=== PATIENT | male | born 1960 | race Caucasian/White ===

== ENCOUNTER → 2018-05-11 02:07 | Outpatient (CLI) | payer BC, SELFPAY ==
[2018-05-11 11:30] LABS: Hemoglobin A1C 6.7 % (4.5-6.2)
== END ==
PROVIDERS: PCP Family Medicine; Visit Provider Family Medicine
DX: E11.9 Type 2 diabetes mellitus without complications (principal)
CPT/HCPCS: 36415; 83036

== ENCOUNTER → 2018-05-12 00:54 | Outpatient (CLI) | payer BC, SELFPAY ==
--- NOTE | 2018-05-12 10:48 | DI.REPORT_ITS ---
SYMPTOM/DIAGNOSIS: WORSENING EPIGASTRIC PAIN ABDOMINAL ULTRASOUND: 05/12 Liver shows decreased through transmission and dependent portions of the liver are nonvisualized. There is increased hepatic echogenicity. The findings are consistent with hepatic steatosis. There is no evidence of cholelithiasis or biliary dilatation. Pancreas appears intact as visualized. Abdominal aorta is of normal diameter as is the IVC. Kidneys are unremarkable in appearance with no evidence of hydronephrosis or nephrolithiasis. Spleen appears normal. CONCLUSION: Findings consistent with hepatic steatosis.
== END ==
PROVIDERS: PCP Family Medicine; Visit Provider Family Medicine
DX: R10.13 Epigastric pain (principal); K76.0 Fatty (change of) liver, not elsewhere classified
CPT/HCPCS: 76700

== ENCOUNTER 2019-02-22 02:05 | Outpatient (CLI) | payer BC, SELFPAY ==
[2019-02-22 10:57] LABS: CREATININE 1.03 mg/dL (0.70-1.30); Cholesterol 186 mg/dL (50-200); HDL Cholesterol 41 mg/dL (40-60); LDL CHOLESTEROL 122 mg/dL (<100); Potassium 4.3 mmol/L (3.5-5.1); Triglyceride 90 mg/dL (30-150)
[2019-02-22 11:10] LABS: Hemoglobin A1C 6.6 % (4.5-6.2)
== END 2019-02-22 02:25 ==
PROVIDERS: PCP Family Medicine; Visit Provider Family Medicine
DX: E11.9 Type 2 diabetes mellitus without complications (principal); E78.5 Hyperlipidemia, unspecified
CPT/HCPCS: 36415; 80061; 83721; 82565; 83036; 84132

== ENCOUNTER 2019-09-05 08:56 | Outpatient (CLI) | payer BC, SELFPAY ==
[2019-09-05 11:22] LABS: Hemoglobin A1C 6.5 % (4.5-6.2)
== END 2019-09-05 09:16 ==
PROVIDERS: PCP Family Medicine; Visit Provider Family Medicine
DX: E11.9 Type 2 diabetes mellitus without complications (principal)
CPT/HCPCS: 36415; 83036

== ENCOUNTER 2019-09-23 10:11 | Emergency (ER) | payer BC, SELFPAY ==
[2019-09-23 10:18] VITALS: BP 147/77; PULSE 60; RESP 15; TEMP 36.1; O2SAT 98
[2019-09-23 10:22] LABS: Bilirubin Negative (Negative); Blood Negative (Negative); Clarity Clear (Clear); Glucose Negative (Negative); Ketones Negative (Negative); Leukocyte Esterase Negative (Negative); Nitrite Negative (Negative); Urobilinogen 0.2 EU/dL (Up TO 0.2)
--- NOTE | 2019-09-23 10:47 | W.ED.GENAD ---
Discharge Plan Disposition Patient Disposition: HOME Discharge Details Chief Complaint: FlankPain Clinical Impression: Acute left flank pain, Left ureter dilated Primary Care Provider: Sukhwinder Dumont ED Provider: Arnulfo Chatterjee Home Meds and New Rx's Prescriptions: New ibuprofen 600 mg tablet 600 mg PO Q8H PRN (Reason: pain) Qty: 60 RF: 0 diazepam [Valium] 2 mg tablet 2 mg PO BID PRN (Reason: spasms) Qty: 8 RF: 0 Continued metformin 500 mg tablet 500 mg PO BID RF: 0 losartan 100 mg tablet 100 mg PO DAILY Qty: 90 RF: 3 omeprazole 40 mg capsule,delayed release(DR/EC) 40 mg PO DAILY PRN (Reason: gerd) Qty: 90 RF: 3 sertraline [Zoloft] 50 mg tablet 50 mg PO HS Qty: 90 RF: 3 (DME) blood-glucose meter [[employer] Verio System] 1 EACH misc 1 ea Miscellaneous DAILY Qty: 1 RF: 0 simvastatin [Zocor] 40 mg tablet 40 mg PO HS Qty: 90 RF: 4 (DME) blood sugar diagnostic Strip 1 ea Miscellaneous DAILY Qty: 90 RF: 2 Discontinued ibuprofen [Ibuprofen IB] 200 mg Tablet 400 mg PO Q6H PRNRF: 0 No Action hydromorphone [Dilaudid] 4 mg tablet 4 mg PO Q6H MDD 3 tabs PRN (Reason: back pain) Qty: 10 RF: 0 cyclobenzaprine 10 mg tablet 10 mg PO HS PRN (Reason: muscle spasm) Qty: 10 RF: 0 acetaminophen 500 mg Tablet 1,000 mg PO PRN PRNRF: 0 hydrocodone-acetaminophen [[place]] 5-325 mg tablet 1 tab PO Q6H PRN (Reason: pain) Qty: 4 RF: 0 Discharge Instructions Instructions: Kidney Stones (ED), Flank Pain (ED) Additional Instructions: Take ibuprofen as prescribed. Please take acetaminophen (tylenol) - 650mg every 6 hours by mouth as needed for pain. Use [id number] lidocaine patches if these provide relief. Please contact your primary care physician to arrange follow-up. Return to the ER for any worsening or new concerning symptoms. Stand Alone Forms: Work Release Referrals: Sukhwinder uDmont [Primary Care Provider] - Discharge Data Discharge Date/Time-TO BE ENTERED AT DEPARTURE: 09/23/19 13:50 Medical Decision Making 1049 --58-year-old male here with left flank pain that started a couple days ago and much worse since this morning with associated nausea and diaphoresis. Urinalysis was reviewed: No hematuria or leuko-uria. Consider renal stone. Plan to obtain CT of the abdomen pelvis. Toradol 30 mg IV and Valium 2 mg p.o. for discomfort. --CT of the abdomen pelvis interpreted by radiology: Findings suggesting possible recent left renal or ureteral stone passage. Minimal dilatation of the left intrarenal collecting system and ureter with no specific obstructing process. Labs reviewed and nondiagnostic. Patient reassessed and pain improved. Plan for outpatient follow-up with PCP. Disposition decision was made weighing the risks and benefits of hospitalization versus outpatient treatment, the risk for further decompensation, and the patient's wishes. The patient was stable and requested discharge. Prior to discharge, my usual and customary return precautions were reviewed with the patient - this included follow-up instructions and reason to return to the emergency department if condition worsens, does not improve as expected, or other new concerns arise. HPI General Mode of arrival: ambulatory. Date/Time Provider Initiated Documentation: 09/23/19 10:31. Limitations to Documentation: no limitations. Information obtained by: patient. HPI Narrative: 58-year-old male here with severe left flank pain. Patient notes he thinks he may have tweaked his back a couple days ago. Took it easy yesterday but did have some discomfort. He woke up this morning with severe pain. Pain is localized to his left flank. Constant. He has associated nausea as well as diaphoresis this morning. No associated dysuria. No hematuria. No testicular pain. No abdominal pain. Related Data Home Medications Medication Instructions Recorded Confirmed blood-glucose meter [OneTouch #1 11/03/16 10/04/19 Verio System] simvastatin 40 mg tablet 40 mg PO HS #90 tab-cap 10/27/18 10/04/19 omeprazole 40 mg capsule,delayed 40 mg PO DAILY PRN #90 tab-cap 02/08/19 10/04/19 release sertraline 50 mg tablet 50 mg PO HS #90 tab-cap 02/08/19 10/04/19 blood sugar diagnostic #90 strip 08/08/19 10/04/19 losartan 100 mg tablet 100 mg PO DAILY #90 tab 09/05/19 10/04/19 metformin 500 mg tablet 500 mg PO BID tab 09/05/19 10/04/19 diazepam [Valium] 2 mg PO BID PRN #8 tab 09/23/19 10/04/19 ibuprofen 600 mg PO Q8H PRN #60 tab 09/23/19 10/04/19 acetaminophen 1,000 mg PO PRN PRN 09/24/19 10/04/19 hydrocodone-acetaminophen [[place]] 1 tab PO Q6H PRN #4 tab 09/24/19 10/04/19 cyclobenzaprine 10 mg tablet 10 mg PO HS PRN #10 tab 09/26/19 10/04/19 hydromorphone 4 mg tablet 4 mg PO Q6H PRN #10 tab MDD 3 tabs 09/26/19 10/04/19 Previous Rx's Medication Instructions Recorded simvastatin 40 mg tablet 40 mg PO HS #90 tab-cap 10/27/18 omeprazole 40 mg capsule,delayed 40 mg PO DAILY PRN #90 tab-cap 02/08/19 release sertraline 50 mg tablet 50 mg PO HS #90 tab-cap 02/08/19 blood sugar diagnostic #90 strip 08/08/19 losartan 100 mg tablet 100 mg PO DAILY #90 tab 09/05/19 diazepam [Valium] 2 mg PO BID PRN #8 tab 09/23/19 ibuprofen 600 mg PO Q8H PRN #60 tab 09/23/19 hydrocodone-acetaminophen [[place]] 1 tab PO Q6H PRN #4 tab 09/24/19 cyclobenzaprine 10 mg tablet 10 mg PO HS PRN #10 tab 09/26/19 hydromorphone 4 mg tablet 4 mg PO Q6H PRN #10 tab MDD 3 tabs 09/26/19 Allergies Allergy/AdvReac Type Severity Reaction Status Date / Time No Known Allergies Allergy Verified 10/04/19 10:24 General Stated Complaint: FlankPain ZULAY: 3 Review of Systems All systems reviewed & are unremarkable except as noted in HPI and below Constitutional Constitutional: Denies fever(s) Genitourinary Genitourinary: Reports as per HPI [facility] Medical History Actinic keratosis (Acute ~06/2019) Diabetes mellitus (Chronic) Surgical History Colonoscopy - MAC (11/06/13) Repair, Rotator Cuff (01/31/16) Family History Mother , 78 ALS (amyotrophic lateral sclerosis) Essential hypertension Hyperlipidemia Father , 84 Heart disease Sister , 64 Lung cancer Brother , 63 Heart disease Stroke Brother Stroke Brother Hyperlipidemia Social History Smoking/Tobacco Use Status: Former Tobacco Use Alcohol Intake: current Alcohol Intake frequency: a few times a week Drug use: Never Caregiver/Support person: No Household members: spouse Housing: house Do you need help understanding health information?: Never Pets and animals: Yes Pets and animals: dog(s) Sexually active: Yes Do you think of yourself as: straight/heterosexual Current gender identity: male What is your relationship status?: How often do you talk on the phone with friends or family?: three or more times per week How often do you get together with friends or relatives?: once per week How often do you attend oriental orthodox or zoroastrianism services?: 1-3 times per year Do you belong to any clubs or organized social groups?: no Panel score (0-1 are the most socially isolated patients): 2 What type of physical activity do you participate in: bicycling Duration: > 90 minutes/day Frequency: 1-2 times per week Seatbelt use: always Helmet use: Yes 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 Do you feel safe at home: Yes Do you feel safe in your relationship?: Yes Exam Const General: cooperative and no acute distress HENMT Mouth: moist mucous membranes Eyes Conjunctivae: normal conjunctivae Sclera: normal sclerae Neck Neck: trachea midline and supple Resp Auscultation: clear to auscultation bilaterally, no rales, no rhonchi and no wheezes Cardio Jugular venous pressure: no JVD Rate: regular rate and not tachycardic Rhythm: regular rhythm GI Palpation: soft, not firm, no guarding, no masses, not rigid and nontender General: CVA tenderness on the left Back/Spine/Pelvis Back: No erythema, No ecchymosis and back tenderness (Left lumbar paraspinal) Skin General skin exam: no rashes or lesions noted Neuro General: alert, awake, oriented x3 and tone normal Motor: strength 5/5 throughout Sensory Exam: no sensory deficits noted (Bilateral lower extremities with no saddle anesthesia) Extrem General: no edema Psych Appearance: grossly normal Mental Status: mental status grossly normal Speech and Movement: speech and movement normal Course Vital Signs Vital signs: Vital Signs Temperature 36.1 C L 09/23/19 10:18 Pulse 60 09/23/19 10:18 Respiratory Rate 15 09/23/19 10:18 Blood Pressure 147/77 H 09/23/19 10:18 Pulse Oximetry 98 09/23/19 10:18 Temperature 36.1 C L 09/23/19 10:18 Temperature Source Temporal Artery Scan 09/23/19 10:18 Pulse 60 09/23/19 10:18 Respiratory Rate 15 09/23/19 10:18 Respiratory Effort Non-Labored 09/23/19 10:21 Blood Pressure 147/77 H 09/23/19 10:18 Blood Pressure Position Standing 09/23/19 10:18 Pulse Oximetry 98 09/23/19 10:18 Oxygen Delivery Method Room Air 09/23/19 10:18 Oxygen Flow Rate 0 09/23/19 10:18 Pain Level 9 09/23/19 10:18 Lab/Test Results Lab/Test Results: Laboratory Tests Range/Units 09/23/19 10:17 Urine Color (Yellow) Yellow Urine Clarity (Clear) Clear Urine pH (5-8) 7.0 Ur Specific [place] (1.005-1.025) 1.020 Urine Protein (Negative) mg/dL Negative Urine Ketones (Negative) mg/dL Negative Urine Blood (Negative) Negative Urine Nitrite (Negative) Negative Urine Bilirubin (Negative) Negative Urine Urobilinogen (Up TO 0.2) EU/dL 0.2 Ur Leukocyte Esterase (Negative) Negative Urine Glucose (Negative) mg/dL Negative
[2019-09-23 11:16] LABS: Abs Immature Grans 0.01 k/cumm (0.0-0.09); Absolute Basophil Count 0.01 k/cumm (0.0-0.2); Absolute Eosinophil Count 0.15 k/cumm (0.0-0.7); Absolute Lymphocyte Count 1.74 k/cumm (1.2-3.4); Absolute Monocyte Count 0.48 k/cumm (0.11-0.7); Absolute Neutrophil Count 3.19 k/cumm (1.2-6.7); Basophils % 0.2; Eosinophils % 2.7; HCT 42.3 % (40.0-50.0); HGB 13.4 g/dL (13.5-17.5); Immature Grans % 0.2; Lymphocytes % 31.2; Mean Corp. HGB Concentration 31.7 g/dL (32.0-36.0); Mean Corpuscular Hemoglobin 27.3 pg (27.0-33.0); Mean Corpuscular Volume 86.3 fL (80-95); Mean Platelet Volume 11.9 fL (8.0-11.0); Monocytes % 8.6; Neutrophils % 57.1; Platelet Count 191 x1000/uL (130-400); RBC Distribution Width 12.5 % (11.8-14.1); White Blood Cell Count 5.58 k/cumm (4.4-10.8)
[2019-09-23] MEDS: Ketorolac 30 MG/ML VIAL IVP (11:17)
[2019-09-23] MEDS: diazePAM 2 MG TAB PO (11:17)
[2019-09-23] MEDS: Normal Saline 1,000 ML 1000 ML IV (11:20)
[2019-09-23] MEDS: Normal Saline Flush 10 ML SYR IVP (11:20)
[2019-09-23 11:34] LABS: ALT 83 U/L (16-63); AST 36 U/L (15-37); Albumin 4.3 g/dL (3.4-5.0); Alkaline Phosphatase 60 U/L (46-116); BUN 17 mg/dL (7-18); Bilirubin, Total 0.3 mg/dL (0.2-1.0); Calcium 8.7 mg/dL (8.5-10.1); Chloride 101 mmol/L (98-107); Glucose 124 mg/dL (74-106); Potassium 4.4 mmol/L (3.5-5.1); Sodium 138 mmol/L (136-145); Total Protein 7.5 g/dL (6.4-8.2)
--- NOTE | 2019-09-23 12:02 | DI.CT_ITS ---
EXAM: CT RENAL COLIC WO CLINICAL HISTORY: left flank pain severe TECHNIQUE: Imaging Protocol: Axial computed tomography images with coronal and sagittal reformatted images were created and reviewed. COMPARISON: No exams were available for comparison FINDINGS: ABDOMEN: Lung Bases: Normal where visualized. Liver: Diffuse decreased attenuation consistent with fatty infiltration. No measurable mass. Gallbladder and biliary tract: No radiodense calculus or dilation. Pancreas: Normal density, no abnormal calcifications or inflammatory process. Spleen: Normal. Kidneys: Normal size, contour and axis. No renal or ureteral calculi are identified. There may be mi ld dilatation of the left renal collecting system this may represent a recently passed stone. No mas ses seen. Adrenal glands: No masses seen. Lymph nodes: Within normal limits. Abdominal Aorta: Atherosclerosis. No aneurysm. PELVIS: Bladder: Symmetric distention, no gross wall thickening. No bladder stone. Bowel: Colonic diverticulosis. No evidence of acute diverticulitis. There is a normal air-filled ap pendix. Appendix has a transverse orientation with the tip in the left abdomen. There is no evidenc e of bowel obstruction. Peritoneal cavity: No ascites, collection or mesenteric inflammatory response. Reproductive organs: Within normal limits. Bones: Degenerative changes. IMPRESSION: No evidence of nephrolithiasis or ureterolithiasis. Question of mild dilatation of the left renal co llecting system. This may represent a recently passed stone. DATA REPOSITORY: All CT scans at this facility are submitted to the National Radiology Data Registry (NRDR) Dose Index Registry (DIR) with the [employer] (ACR). RADIATION OPTIMIZATION: All CT scans at this facility use at least one of these dose optimization te chniques: automated exposure control; mA and/or kV adjustment per patient size (includes targeted exa ms where dose is matched to clinical indication); or iterative reconstruction.
--- NOTE | 2019-09-23 13:08 | DI.VRAD_ITS ---
PROCEDURE INFORMATION: Exam: CT Abdomen And Pelvis Without Contrast Exam date and time: 09/23/2019 12:02 PM Age: 58 years old Clinical indication: Other: Left flank pain TECHNIQUE: Imaging protocol: Computed tomography of the abdomen and pelvis without contrast. COMPARISON: No relevant prior studies available. FINDINGS: Mild diffuse fatty infiltration of liver. Minimal dilatation of the left intrarenal collecting system and ureter with no specific obstructing process. This may representing recent stone passage. No stone is noted within the urinary bladder. No renal or ureteral stones present. Appendix is normal. Minimal diverticulosis. No significant free fluid. No evidence of bowel obstruction. IMPRESSION: Findings suggesting possible recent left renal or ureteral stone passage. Dictated and Authenticated by: Arvind Rod MD. Ordering:IRVIN Arredondo MD
[2019-09-23] MEDS: Acetaminophen 325 MG TAB (13:30)
[2019-09-23] MEDS: Lidocaine 5% Patch 1 PATCH (13:51)
[2019-09-23 13:52] VITALS: BP 138/74; PULSE 82; RESP 18
== END 2019-09-23 13:50 | disposition home or self-care (01) ==
PROVIDERS: Emergency Provider Student in an Organized Health Care Education/Training Program; PCP Family Medicine
DX: R10.32 Left lower quadrant pain (principal); N28.89 Other specified disorders of kidney and ureter; E11.9 Type 2 diabetes mellitus without complications; Z79.84 Long term (current) use of oral hypoglycemic drugs
CPT/HCPCS: 80053; 96361; 96374; 99285; 74176; 81003; 85025; 99284; J1885

== ENCOUNTER 2019-09-24 16:29 | Emergency (ER) | payer BC, SELFPAY ==
[2019-09-24 16:36] VITALS: BP 155/104; PULSE 62; RESP 18; TEMP 36.2; O2SAT 97
--- NOTE | 2019-09-24 17:19 | ED.GENADUL_ITS ---
Discharge Plan Disposition Patient Disposition: HOME Condition: Stable Discharge Details Chief Complaint: Nk/Back Pain Clinical Impression: Sciatica Primary Care Provider: Sukhwinder Dumont ED Provider: June Vizcaino Home Meds and New Rx's Prescriptions: New hydrocodone-acetaminophen [[place]] 5-325 mg tablet 1 tab PO Q6H PRN (Reason: pain) Qty: 4 RF: 0 methylprednisolone [Medrol (Calvin)] 4 mg tablets,dose pack See Rx Instructions .ROUTE .COMPLEX Qty: 21 RF: 0 No Action metformin 500 mg tablet 500 mg PO BID RF: 0 losartan 100 mg tablet 100 mg PO DAILY Qty: 90 RF: 3 omeprazole 40 mg capsule,delayed release(DR/EC) 40 mg PO DAILY PRN (Reason: gerd) Qty: 90 RF: 3 sertraline [Zoloft] 50 mg tablet 50 mg PO HS Qty: 90 RF: 3 (DME) blood-glucose meter [[employer] Verio System] 1 EACH misc 1 ea Miscellaneous DAILY Qty: 1 RF: 0 simvastatin [Zocor] 40 mg tablet 40 mg PO HS Qty: 90 RF: 4 (DME) blood sugar diagnostic Strip 1 ea Miscellaneous DAILY Qty: 90 RF: 2 ibuprofen 600 mg tablet 600 mg PO Q8H PRN (Reason: pain) Qty: 60 RF: 0 diazepam [Valium] 2 mg tablet 2 mg PO BID PRN (Reason: spasms) Qty: 8 RF: 0 acetaminophen 500 mg Tablet 1,000 mg PO PRN PRNRF: 0 Discharge Instructions Instructions: Sciatica (ED) Additional Instructions: Drink plenty of fluids. Rest activities as tolerated. Avoid heavy lifting or deep backbends. Use medication for pain as prescribed only if needed for severe pain. Do not mix this with additional Tylenol. Do not mix with Valium previously prescribed. Consider use of TENS unit on the lower back Ice or heat for discomfort. Use steroid prescription as directed. Do not mix this with ibuprofen. Closely follow your blood sugars while taking steroids as discussed. Follow-up promptly with your primary care doctor for persistence of pain lasting greater than 3 to 5 days. Return to the emergency room for fevers, ill feeling, abdominal pain, numbness below the waist, difficulty controlling her bladder or bowels or for alarming symptoms sooner if needed. Stand Alone Forms: Work Release Discharge Data Discharge Date/Time-TO BE ENTERED AT DEPARTURE: 09/24/19 18:35 Medical Decision Making Is a 57-year-old patient who presents for complaints of persistent back pain which began after lifting a bag of garbage into his car he felt a tweak in the lower back and similar location to previously experienced back pain and sciatica. Patient reports the following day he had mild increase in pain but was certainly still tolerable. Patient reports he awoke yesterday morning with severe back pain with radiation into his left leg. Patient reports pain into the buttocks area and radiating into the anterior left thigh. No pain beyond the thigh. Denies any numbness, tingling or weakness of the lower legs. No difficulty ambulating. Patient denies abdominal pain, fevers, chills. He does report mild nausea with pain. Patient denies any dysuria, frequency or urgency. Patient denies any significant bowel changes. Patient reports he does have a history of sciatica in the past and this is similar location and character the sciatica he is experienced however is more intense. Patient has never required anything more than ibuprofen for his back pain. Patient did have a CT image yesterday which did reveal mild dilation of the ureter consistent with a possible passed kidney stone as well as degenerative changes of the spine. Patient's labs reviewed from yesterday's visit which did not reveal any significant leukocytosis or CMP abnormalities outside of mild elevation of glucose and he is a type II borderline diabetic. At this time I will prescribe patient a dose of Dilaudid to try to be his pain cycle. Discussed use of pain medication at home. Patient reports Valium with no relief of his symptoms. Patient appears uncomfortable and has an exam reasonably consistent with sciatica. After discussion with the patient we will plan to provide Vicodin for home for the next few days and a course of steroids. Encouraged prompt follow-up with PCP. Patient reports his understanding and agrees with plan of care. Patient defers labs at this time. I do not feel this patient needs additional imaging as he had CT yesterday. The patient was stable and requested discharge. Prior to discharge, my usual and customary return precautions were reviewed with the patient - this included follow-up instructions and reasons to return to the Emergency Department if conditions worsens, does not improve as expected, or other new concerns arise. HPI General Date/Time Provider Initiated Documentation: 09/24/19 16:49 . HPI Narrative: Is a 58-year-old patient who presents for complaints of lower back pain with radiation through the buttocks into his left thigh. Patient reports pain is difficult to tolerate. Patient was seen here yesterday had a CT of his abdomen and pelvis for concern of possible kidney stone. CT did reveal mild dilated ureter. Patient denies back pain at the kidney at this time he is complaining of lower back pain with radicular symptoms. Patient denies fever, chills. Patient denies ill feeling. Mild nausea due to pain. Patient does have a history of sciatica. Patient does report he felt a tweak in his back when lifting a bag of garbage into his car. Patient reports noted that mild pain on which increased slightly on Wednesday however yesterday morning woke with severe pain worse than his typical. Patient does report an injury to his back several years ago. Patient denies bowel changes. Patient does report he use the Valium 2 mg tablets that were prescribed yesterday but reports he has had difficulty sleeping, is unable to get comfortable and pain is very difficult to tolerate at this time. Patient denies any rashes. Patient denies abdominal pain. No other concerns or complaints at this time. Related Data Home Medications Medication Instructions Recorded Confirmed blood-glucose meter [OneTouch #1 11/03/16 09/24/19 [employer] System] simvastatin 40 mg tablet 40 mg PO HS #90 tab-cap 10/27/18 09/24/19 omeprazole 40 mg capsule,delayed 40 mg PO DAILY PRN #90 tab-cap 02/08/19 09/24/19 release sertraline 50 mg tablet 50 mg PO HS #90 tab-cap 02/08/19 09/24/19 blood sugar diagnostic #90 strip 08/08/19 09/24/19 losartan 100 mg tablet 100 mg PO DAILY #90 tab 09/05/19 09/24/19 metformin 500 mg tablet 500 mg PO BID tab 09/05/19 09/24/19 diazepam [Valium] 2 mg PO BID PRN #8 tab 09/23/19 09/24/19 ibuprofen 600 mg PO Q8H PRN #60 tab 09/23/19 09/24/19 acetaminophen 1,000 mg PO PRN PRN 09/24/19 09/24/19 hydrocodone-acetaminophen [[place]] 1 tab PO Q6H PRN #4 tab 09/24/19 methylprednisolone [Medrol (Calvin)] See Rx Instructions .ROUTE 09/24/19 .COMPLEX #21 dose pk Previous Rx's Medication Instructions Recorded simvastatin 40 mg tablet 40 mg PO HS #90 tab-cap 10/27/18 omeprazole 40 mg capsule,delayed 40 mg PO DAILY PRN #90 tab-cap 02/08/19 release sertraline 50 mg tablet 50 mg PO HS #90 tab-cap 02/08/19 blood sugar diagnostic #90 strip 08/08/19 losartan 100 mg tablet 100 mg PO DAILY #90 tab 09/05/19 diazepam [Valium] 2 mg PO BID PRN #8 tab 09/23/19 ibuprofen 600 mg PO Q8H PRN #60 tab 09/23/19 hydrocodone-acetaminophen [[place]] 1 tab PO Q6H PRN #4 tab 09/24/19 methylprednisolone [Medrol ([place]vin)] See Rx Instructions .ROUTE 09/24/19 .COMPLEX #21 dose pk Allergies Allergy/AdvReac Type Severity Reaction Status Date / Time No Known Allergies Allergy Unverified 09/24/19 16:39 General Stated Complaint: Nk/Back Pain ZULAY: 3 Review of Systems All systems reviewed & are unremarkable except as noted in HPI and below Constitutional Constitutional: Denies chills, Denies fatigue, Denies fever(s), Denies headache(s) and Denies malaise ENT Ears, Nose, Mouth, and Throat: Denies headache(s) and Denies neck pain Gastrointestinal Gastrointestinal: Denies abdominal pain, Denies diarrhea, Denies nausea and Denies vomiting Musculoskeletal Musculoskeletal: Reports back pain, Denies muscle cramps, Denies muscle weakness, Denies neck pain, Denies numbness, Reports radiating pain into limb and Denies tingling Neurologic Neurologic: Denies headache(s), Denies numbness and Denies tingling Endocrine Endocrine: Denies fatigue [facility] Medical History Actinic keratosis (Acute ~06/2019) Diabetes mellitus (Chronic) Social History Smoking/Tobacco Use Status: Former Tobacco Use Alcohol Intake: current Alcohol Intake frequency: a few times a week Drug use: Never Caregiver/Support person: No Household members: spouse Housing: house Do you need help understanding health information?: Never Pets and animals: Yes Pets and animals: dog(s) Sexually active: Yes Do you think of yourself as: straight/heterosexual Current gender identity: male What is your relationship status?: How often do you talk on the phone with friends or family?: three or more times per week How often do you get together with friends or relatives?: once per week How often do you attend congregational or tenriism services?: 1-3 times per year Do you belong to any clubs or organized social groups?: no Panel score (0-1 are the most socially isolated patients): 2 What type of physical activity do you participate in: bicycling Duration: > 90 minutes/day Frequency: 1-2 times per week Seatbelt use: always Helmet use: Yes Drive 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 Well hydrated. Alert and alert. NECK: Normal visual inspection. FROM. Trachea midline. No Midline tenderness. CHEST: Normal insepection of the chest. RESP: Normal respiratory effort. Speaking full sentences. No cough. No audible wheezing. No retractions. Breath sounds are full and equal bilaterally. No wheezing, rhonchi or rales CARDIO: No JVD. No murmurs. Regular rate and rhythm Back: No CVA tenderness noted bilaterally. Pain overlying the spine in the lumbar spine. Moderate pain with palpation of the left sciatic notch. Pain with straight leg raise noted on the left. No significant pain with straight leg raise on the right. MUSCULOSKELETAL: Normal Gait. FROM of all extremities. DTRs intact distally. Sensation intact distally. No foot drop. SKIN: Normal. Dry. No rashes. NEURO: Alert and awake. Speech clear. PSYCH: Normal affect. Cooperative. Course Vital Signs Vital signs: Vital Signs Temperature 36.2 C L 09/24/19 16:36 Pulse 62 09/24/19 16:36 Respiratory Rate 18 09/24/19 16:36 Blood Pressure 155/104 H 09/24/19 16:36 Pulse Oximetry 97 09/24/19 16:36 Temperature 36.2 C L 09/24/19 16:36 Temperature Source Skin 09/24/19 16:36 Pulse 62 09/24/19 16:36 Respiratory Rate 18 09/24/19 16:36 Respiratory Effort Non-Labored 09/24/19 16:40 Blood Pressure 155/104 H 09/24/19 16:36 Pulse Oximetry 97 09/24/19 16:36 Pain Level 10 09/24/19 16:36
[2019-09-24] MEDS: Ondansetron 4 MG/2 ML VIAL IVP (17:39)
[2019-09-24] MEDS: HYDROmorphone 2 MG/ML VIAL 1 MG IVP (17:39)
[2019-09-24] MEDS: HYDROmorphone 2 MG/ML VIAL 0.25 MG IVP (18:41)
[2019-09-24] MEDS: HYDROcodone 5/Acetaminophen 325 TAB PO (18:51)
[2019-09-24 18:52] VITALS: RESP 19; O2SAT 97
== END 2019-09-24 18:35 | disposition home or self-care (01) ==
PROVIDERS: Emergency Provider Physician Assistant; PCP Family Medicine
DX: M54.42 Lumbago with sciatica, left side (principal); E11.9 Type 2 diabetes mellitus without complications; Z79.84 Long term (current) use of oral hypoglycemic drugs
CPT/HCPCS: 96374; 96375; 96376; 99284; J2405

== ENCOUNTER 2020-04-10 01:28 | Outpatient (CLI) | payer BC, SELFPAY ==
[2020-04-10 13:14] LABS: Hemoglobin A1C 6.4 % (3.8-5.6)
== END 2020-04-10 01:48 ==
PROVIDERS: PCP Family Medicine; Visit Provider Family Medicine
DX: R73.9 Hyperglycemia, unspecified (principal)
CPT/HCPCS: 36415; 83036

== ENCOUNTER 2020-04-28 07:05 | Emergency (ER) | payer BC, SELFPAY ==
[2020-04-28] VITALS (7 sets, daily range): BP systolic 90–138; BP diastolic 50–88; PULSE 56–81; RESP 15–24; TEMP 36.6–36.7; O2SAT 91–96
--- NOTE | 2020-04-28 07:15 | RT.EKG_ITS ---
APPROVED REPORT Exam: Resting ECG Patient Location: E HR:63 bpm ECG Measurements Heart Rate 63 AXIS IN 177 P 66 QRSd 95 QRS 44 QT 413 T 33 QTc 424 <Conclusion> Sinus rhythm...normal P axis, V-rate 60- 99 Intervals normal, No STEMI, no significant ST elevation or depressions
--- NOTE | 2020-04-28 07:41 | ED.GENADUL_ITS ---
Discharge Plan Disposition Patient Disposition: HOME Condition: Stable Discharge Details Chief Complaint: RespSymp Clinical Impression: Cough, Atypical chest pain Primary Care Provider: Sukhwinder Dumont ED Provider: Veto Cat Home Meds and New Rx's Prescriptions: Continued omeprazole 40 mg capsule,delayed release(DR/EC) 40 mg PO DAILY PRN (Reason: gerd) Qty: 90 RF: 3 metformin 500 mg tablet 500 mg PO BID Qty: 180 RF: 3 losartan-hydrochlorothiazide 100-12.5 mg tablet 1 tab PO DAILY Qty: 90 RF: 3 (DME) blood-glucose meter [OneTouch Verio Meter] 1 EACH misc 1 ea Miscellaneous DAILY Qty: 1 RF: 0 (DME) blood sugar diagnostic Strip 1 ea Miscellaneous DAILY Qty: 90 RF: 2 simvastatin [Zocor] 40 mg tablet 40 mg PO HS Qty: 90 RF: 4 sertraline [Zoloft] 50 mg tablet 50 mg PO HS Qty: 90 RF: 3 Discharge Instructions Instructions: Chest Pain (ED) Additional Instructions: You are COVID-19 test is pending. Please continue to observe social distancing and the wearing of masks with good hand hygiene. We will ask our care management team to arrange an outpatient follow-up for you in Dr. Dumont's office this week. Return if you have difficulty breathing, develop worsening chest pain, high fever, or any other acute concerns. Continue your regular medications. Home to rest today. Stand Alone Forms: PENDING COVID-19 TESTING Medical Decision Making <Mamadou Cortez DO - Last Filed: 04/28/20 07:48> 59-year-old male with a past medical history of borderline diabetes, hypertension, high cholesterol, family history of heart disease presents today for evaluation of shortness of breath and cough and chest tightness. Patient st ates that he did a 10 mile cross-country bike ride yesterday and was fine with no complaints whatsoever, then late last night he developed the sudden onset tightness in his chest with associated mild dry cough, and shortness of breath. He does have associated pleuritic chest pain with this. He denies any falls or trauma. He denies any hemoptysis, numbness, tingling, or weakness. 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 However otherwise he denies any recent foreign travel, or contact with known coronavirus individuals. Denies PE risk factors such as recent long car rides, immobilization, recent surgery, prior history of DVT or PE, family history of PE or DVT, morbid obesity, exogenous estrogen and smoking, hemoptysis, history of cancer. Physical exam is notably unremarkable. Differential at this time includes cardiac etiology especially with his risk factors, mildly elevated heart score, and history, he did smoke 25 years ago as well. Also included is PE we will get a dimer to rule this out. Differential includes coronavirus and we will do COVID testing although this feels slightly less likely given the notably mild nature of his symptoms with no other associated symptoms. Case will be signed out to my colleague Dr. Veto Cat for review of labs and imaging. <Veto Cat MD - Last Filed: 04/28/20 13:53> Received signout from Dr. Cortez, please see his note regarding details of the initial presentation, plan of care. Patient's labs reviewed. His d-dimer is elevated somewhat. He is referred for CT scan. CT with no evidence of PE or aortic abnormality. Lungs unremarkable. No consolidation or masses. Please see formal report. Patient observed on harbormaster and repeat troponin obtained and is negative at both 4 and 6 hours. Patient improved. He may have a viral syndrom. Discussed with him indications to return including difficulty breathing, shortness of breath. He is stable and improved. We will ask hospice patient care secretary to arrange an outpatient follow-up with him in clinic for recheck. Lab Data Lab results reviewed: Yes I reviewed the patient's lab results. Labs: Laboratory Results - last 24 hr 04/28/20 04/28/20 04/28/20 07:33 07:33 07:33 WBC 8.67 RBC 4.49 Hgb 13.4 L Hct 39.8 L MCV 88.6 MCH 29.8 MCHC 33.7 RDW 12.8 Plt Count 181 MPV 11.8 H Immature Gran % 0.2 Neutrophils % 78.3 Lymphocytes % 14.4 Monocytes % 6.7 Eosinophils % 0.3 Basophils % 0.1 Absolute Neutrophils 6.78 H Absolute Lymphocytes 1.25 Absolute Monocytes 0.58 Absolute Eosinophils 0.03 Absolute Basophils 0.01 PT INR APTT D-Dimer 561 H VBG pH VBG pCO2 VBG pO2 VBG HCO3 VBG Total CO2 VBG O2 Saturation VBG Base Excess Sodium 139 Potassium 4.0 Chloride 103 Carbon Dioxide 29.1 Anion Gap 6.9 BUN 19 H Creatinine 1.03 Estimated GFR/1.73 m2 >= 60.00 Glucose 131 H Calcium 8.9 Total Bilirubin 0.5 AST 36 ALT 69 H Alkaline Phosphatase 49 Troponin I < 0.05 NT-Pro-B Natriuret Pep 84 Total Protein 7.2 Albumin 3.9 04/28/20 04/28/20 07:33 07:33 WBC RBC Hgb Hct MCV MCH MCHC RDW Plt Count MPV Immature Gran % Neutrophils % Lymphocytes % Monocytes % Eosinophils % Basophils % Absolute Neutrophils Absolute Lymphocytes Absolute Monocytes Absolute Eosinophils Absolute Basophils PT 9.5 INR 0.9 APTT 24.7 D-Dimer VBG pH 7.38 VBG pCO2 49 H VBG pO2 42 VBG HCO3 29 H VBG Total CO2 26 VBG O2 Saturation 76 VBG Base Excess 3.5 H Sodium Potassium Chloride Carbon Dioxide Anion Gap BUN Creatinine Estimated GFR/1.73 m2 Glucose Calcium Total Bilirubin AST ALT Alkaline Phosphatase Troponin I NT-Pro-B Natriuret Pep Total Protein Albumin HPI <Mamadou Cortez DO - Last Filed: 04/28/20 07:48> General Date/Time Provider Initiated Documentation: 04/28/20 07:07 . HPI Narrative: 59-year-old male with a past medical history of borderline diabetes, hypertension, high cholesterol, family history of heart disease presents today for evaluation of shortness of breath and cough and chest tightness. Patient states that he did a 10 mile cross-country bike ride yesterday and was fine with no complaints whatsoever, then late last night he developed the sudden onset tightness in his chest with associated mild dry cough, and shortness of breath. He does have associated pleuritic chest pain with this. He denies any falls or trauma. He denies any hemoptysis, numbness, tingling, or weakness. 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 However otherwise he denies any recent foreign travel, or contact with known coronavirus individuals. Denies PE risk factors such as recent long car rides, immobilization, recent surgery, prior history of DVT or PE, family history of PE or DVT, morbid obesity, exogenous estrogen and smoking, hemoptysis, history of cancer. Related Data Home Medications Medication Instructions Recorded Confirmed blood-glucose meter [OneTouch #1 11/03/16 10/04/19 Verio Meter] blood sugar diagnostic #90 strip 08/08/19 10/04/19 simvastatin 40 mg tablet 40 mg PO HS #90 tab-cap 12/18/19 04/28/20 sertraline 50 mg tablet 50 mg PO HS #90 tab-cap 02/20/20 04/28/20 losartan 100 1 tab PO DAILY #90 tab 03/22/20 04/28/20 mg-hydrochlorothiazide 12.5 mg tablet metformin 500 mg tablet 500 mg PO BID #180 tab 03/22/20 04/28/20 omeprazole 40 mg capsule,delayed 40 mg PO DAILY PRN #90 tab-cap 03/22/20 04/28/20 release Previous Rx's Medication Instructions Recorded blood sugar diagnostic #90 strip 08/08/19 simvastatin 40 mg tablet 40 mg PO HS #90 tab-cap 12/18/19 sertraline 50 mg tablet 50 mg PO HS #90 tab-cap 02/20/20 losartan 100 1 tab PO DAILY #90 tab 03/22/20 mg-hydrochlorothiazide 12.5 mg tablet metformin 500 mg tablet 500 mg PO BID #180 tab 03/22/20 omeprazole 40 mg capsule,delayed 40 mg PO DAILY PRN #90 tab-cap 03/22/20 release Allergies Allergy/AdvReac Type Severity Reaction Status Date / Time No Known Allergies Allergy Verified 04/28/20 07:49 General Stated Complaint: RespSymp ZULAY: 2 Review of Systems <Mamadou Cortez DO - Last Filed: 04/28/20 07:48> All systems reviewed & are unremarkable except as noted in HPI and below PFSH <Mamadou Cortez DO - Last Filed: 04/28/20 07:48> Medical History Actinic keratosis (Acute ~06/2019) Diabetes mellitus (Chronic) Surgical History Colonoscopy - MAC (11/06/13) Repair, Rotator Cuff (01/31/16) Family History Mother , 78 ALS (amyotrophic lateral sclerosis) Essential hypertension Hyperlipidemia Father , 84 Heart disease Sister , 64 Lung cancer Brother , 63 Heart disease Stroke Brother Stroke Brother Hyperlipidemia Social History Smoking/Tobacco Use Status: Former Tobacco Use Alcohol Intake: current Alcohol Intake frequency: a few times a week Drug use: Never Substance use type: does not use Caregiver/Support person: No Household members: spouse Housing: house Do you need help understanding health information?: Never Pets and animals: Yes Pets and animals: dog(s) Sexually active: Yes Do you think of yourself as: straight/heterosexual Current gender identity: male What is your relationship status?: How often do you talk on the phone with friends or family?: three or more times per week How often do you get together with friends or relatives?: once per week How often do you attend islam or temple services?: 1-3 times per year Do you belong to any clubs or organized social groups?: no Panel score (0-1 are the most socially isolated patients): 2 What type of physical activity do you participate in: bicycling Duration: > 90 minutes/day Frequency: 1-2 times per week Seatbelt use: always Helmet use: Yes Drive intox or ride w/intox hazmat tanker driver: No Do you feel safe at home: Yes Do you feel safe in your relationship?: Yes Exam <Mamadou Cortez DO - Last Filed: 04/28/20 07:48> Narrative Exam Narrative: 1.Const: Well-nourished, Well-developed, appearing stated age 2.Eyes: PERRL, no conjunctival injection, and symmetrical lids. 3.ENT: Atraumatic external nose and ears. Moist MM. Neck: Symmetric, trachea midline, No thyromegaly. 4.CVS: +S1/S2, No murmurs or gallops. Peripheral pulses 2+ and equal in all extremities. Brisk capillary refill in all extremities. 5.RESP: Unlabored respiratory effort. Clear to auscultation bilaterally. No wheezes rales or rhonchi 6.GI: Soft, Nontender/Nondistended, No hepatosplenomegaly. No guarding or rebound. 7.MSK: Normocephalic/Atraumatic, Extremities w/o deformity or ttp No cyanosis or clubbing, Normal movement of all extremities 8.Skin: Warm, Dry. No rashes or lesions. 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 Sensation grossly intact, no focal neurologic deficits. 10.Psych: (AAO) x3. Appropriate mood and affect Course <Mamadou Cortez DO - Last Filed: 04/28/20 07:48> Vital Signs Vital signs: Vital Signs Temperature 36.7 C 04/28/20 07:13 Pulse 64 04/28/20 07:13 Respiratory Rate 18 04/28/20 07:13 Blood Pressure 138/88 04/28/20 07:13 Pulse Oximetry 95 04/28/20 07:13 Temperature 36.7 C 04/28/20 07:13 Temperature Source Temporal Artery Scan 04/28/20 07:13 Pulse 64 04/28/20 07:13 Respiratory Rate 18 04/28/20 07:13 Blood Pressure 138/88 04/28/20 07:13 Blood Pressure Position Sitting 04/28/20 07:13 Pulse Oximetry 95 04/28/20 07:13 Oxygen Delivery Method Room Air 04/28/20 07:13 Oxygen Flow Rate 0 04/28/20 07:13 Sign Out <Mamadou Cortez DO - Last Filed: 04/28/20 07:48> Sign Out Data: Sign Out Comment: Pending lab and imaging results, pending d-dimer rule out, concern for cardiac etiology, less likely coronavirus. Last updated by Mamadou Cortez DO at 04/28/20 07:49
[2020-04-28 07:52] LABS: BE (Venous) 3.5 mmol/L (-3-3); HCO3 (Venous) 29 mmol/L (22-28); O2 Sat (Venous) 76 % (70-80); TCO2 (Venous) 26 mmol/L (22-29); pCO2 (Venous) 49 mm/Hg (34-47); pH (Venous) 7.38 (7.35-7.45); pO2 (Venous) 42 mm/Hg (28-44)
[2020-04-28 07:54] LABS: Abs Immature Grans 0.02 10^3/uL (0.0-0.06); Absolute Basophil Count 0.01 10^3/uL (0.0-0.2); Absolute Eosinophil Count 0.03 10^3/uL (0.0-0.7); Absolute Lymphocyte Count 1.25 10^3/uL (1.2-3.4); Absolute Monocyte Count 0.58 10^3/uL (0.1-0.8); Absolute Neutrophil Count 6.78 10^3/uL (1.2-6.7); Basophils % 0.1; Eosinophils % 0.3; HCT 39.8 % (40.0-50.0); HGB 13.4 g/dL (13.5-17.5); Immature Grans % 0.2; Lymphocytes % 14.4; MCH 29.8 pg (27.0-33.0); MCHC 33.7 % (32.0-36.0); MCV 88.6 fL (80-95); MPV 11.8 fL (8.0-11.0); Monocytes % 6.7; Neutrophils % 78.3; Platelet Count 181 10^3/uL (130-400); RBC 4.49 10^6/uL (4.36-5.78); RDW 12.8 % (11.8-14.1); RDW-SD 41.1 fL; WBC 8.67 10^3/uL (4.4-10.8)
[2020-04-28 08:14] LABS: INR 0.9 (0.9-1.1); PTT Activated 24.7 sec (21.0-31.4); Prothrombin Time 9.5 sec (9.3-11.0)
[2020-04-28 08:21] LABS: ALT 69 U/L (16-63); AST 36 U/L (15-37); Albumin 3.9 g/dL (3.4-5.0); Alkaline Phosphatase 49 U/L (46-116); Anion Gap 6.9 mmol/L (3-11); BUN 19 mg/dL (7-18); Bilirubin, Total 0.5 mg/dL (0.2-1.0); CO2 29.1 mmol/L (21.0-32.0); CREATININE 1.03 mg/dL (0.70-1.30); Calcium 8.9 mg/dL (8.5-10.1); Chloride 103 mmol/L (98-107); Glucose 131 mg/dL (74-106); NT-proBNP 84 pg/mL (<300); Sodium 139 mmol/L (136-145); Total Protein 7.2 g/dL (6.4-8.2)
[2020-04-28 08:23] LABS: Troponin I < 0.05 ng/mL (<0.06)
[2020-04-28 08:29] LABS: D-Dimer 561 ng/mlFEU (<500)
--- NOTE | 2020-04-28 08:30 | DI.CT_ITS ---
EXAM: CT CHEST PE CTA CLINICAL HISTORY: elev ddimer SOB TECHNIQUE: COMPARISON: CT CT RENAL COLIC WO from 09/23/2019 FINDINGS: CT angiography of the chest was performed with bolus infusion 100 cc of Omnipaque 350. Images obtain ed through the upper abdomen show unremarkable appearance of the spleen and show probable hepatic smiley atosis. No mediastinal or hilar adenopathy seen. Tracheobronchial tree appears intact. No evidence of pulmo nary embolic disease. No thoracic aortic aneurysm or dissection. Lungs are predominantly clear, there is poorly defined vaguely nodular or consolidative radiodensity in the right lower lobe medially measuring up to about 12 millimeters in diameter, motion artifact pr events accurate evaluation. This finding could represent a small focus of pulmonary consolidation or could represent a nodule. Follow-up chest CT is recommended to re-evaluate this area in 3 months at and if there is a persistent radiodensity of this area follow-up may be determined as per the [employer] society guidelines. IMPRESSION: No evidence of acute pulmonary embolic disease. Questionable nodular or consolidative finding right middle lobe, follow-up chest CT recommended in 3 months.
[2020-04-28] MEDS: Normal Saline - Diluent 50 ML VIAL IV (09:13)
[2020-04-28] MEDS: Omnipaque 350 MG/ML 100 ML BTL IJ (09:14)
[2020-04-28] MEDS: Normal Saline Flush 10 ML SYR IV (09:15)
--- NOTE | 2020-04-28 09:37 | NUR.NOTE ---
resting comfortably, respirations even and unlabored. warm blankets and urinal provided
--- NOTE | 2020-04-28 09:40 | DI.VRAD_ITS ---
PROCEDURE INFORMATION: Exam: CT Angiography Chest With Contrast Exam date and time: 04/28/2020 8:32 AM Age: 59 years old Clinical indication: Other: Elevated ddimer; Patient HX: No HX of pe or dvt, SOB since last night. ; Additional info: High BP on metformin. TECHNIQUE: Imaging protocol: Computed tomographic angiography of the chest with intravenous contrast. 3D rendering: MIP and/or 3D reconstructed images were created by the technologist. Radiation optimization: All CT scans at this facility use at least one of these dose optimization techniques: automated exposure control; mA and/or kV adjustment per patient size (includes targeted exams where dose is matched to clinical indication); or iterative reconstruction. Contrast material: OMNIPAQUE 350; Contrast volume: 100 ml; Contrast route: INTRAVENOUS (IV); COMPARISON: CR CHEST 2 VIEWS PA,LAT 08/29/2014 10:22 AM FINDINGS: Pulmonary arteries: No evidence of pulmonary embolus to the segmental level. Aorta: No aneurysm of the aorta. No dissection of the aorta. Lungs: Unremarkable. No consolidation. No masses. Pleural space: Unremarkable. No pneumothorax. No pleural effusion. Heart: Unremarkable. No cardiomegaly. No pericardial effusion. Lymph nodes: Unremarkable. No enlarged lymph nodes. Bones/joints: Unremarkable. No acute fracture. Soft tissues: Unremarkable. IMPRESSION: 1. No evidence of pulmonary embolus to the segmental level. 2. No aneurysm of the aorta. 3. No dissection of the aorta. Dictated and Authenticated by: Caio Luica MD. Ordering:KARL Laws MD
[2020-04-28 11:05] LABS: Troponin I < 0.05 ng/mL (<0.06)
--- NOTE | 2020-04-28 11:20 | NUR.NOTE ---
describes pain as someone standing or sitting on chest, aware
--- NOTE | 2020-04-28 11:41 | NUR.NOTE ---
reports no change in pain level after nitro
[2020-04-28] MEDS: Ondansetron 4 MG/2 ML VIAL IVP (11:57)
--- NOTE | 2020-04-28 11:58 | NUR.NOTE ---
reports some pain relief and now having nausea. MD notified IV bolus NS initiated
[2020-04-28] MEDS: Normal Saline 500 ML IV (12:07)
--- NOTE | 2020-04-28 13:04 | NUR.NOTE ---
given turkey sandwich and water
--- NOTE | 2020-04-28 13:16 | NUR.NOTE ---
sitting at bedside eating turkey sandwich, respirations even and unlabored. voided x 2 in urinal, approx 600mls
[2020-04-28 13:37] LABS: Troponin I < 0.05 ng/mL (<0.06)
--- NOTE | 2020-04-28 13:51 | NUR.NOTE ---
Referral faxed to [facility] Dr Dumont.Nursing Note:
[2020-04-30 09:57] LABS: SARS-CoV-2 RNA Undetected (Undetected); SARS-CoV-2 Specimen Source Nasopharynx
== END 2020-04-28 14:05 | disposition home or self-care (01) ==
PROVIDERS: Student in an Organized Health Care Education/Training Program; Emergency Provider Emergency Medicine; PCP Family Medicine
DX: R07.89 Other chest pain (principal); R05 Cough; R11.0 Nausea; R91.1 Solitary pulmonary nodule; Z11.59 Encounter for screening for other viral diseases; R79.1 Abnormal coagulation profile; E11.9 Type 2 diabetes mellitus without complications; Z79.84 Long term (current) use of oral hypoglycemic drugs; I10 Essential (primary) hypertension; Z79.891 Long term (current) use of opiate analgesic
CPT/HCPCS: 36415; 71275; 80053; 82805; 93005; 96374; 99285; U0003; 83880; 84484; 85025; 85379; 85610; 85730; 93010; J2405; J3490

== ENCOUNTER 2020-09-23 02:00 | Outpatient (CLI) | payer BC, SELFPAY ==
--- NOTE | 2020-09-23 | DI.CT_ITS ---
EXAM: CT CHEST WO CLINICAL HISTORY: DYSPNEA, R06.00. TECHNIQUE: Multi planar reconstructions were performed. CONTRAST MATERIAL: None COMPARISON: CR CHEST 2 VIEWS PA,LAT from 08/29/2014 FINDINGS: CHEST: LUNGS: There are no confluent infiltrates nor pleural effusions. There are mild increased markings i n the medial basal segment of the right lower lobe (series 2/images 49-50). No ominous pulmonary nod ules. There are no significant focal findings in the trachea and mainstem bronchi. There is no bron chiectasis. MEDIASTINUM: There is no hilar nor mediastinal adenopathy. Visualized thyroid unremarkable. CARDIAC: Heart size is normal. There is no pericardial effusion.Caliber of the thoracic aorta is wit hin normal limits. VISUALIZED UPPER ABDOMEN:There are no significant adrenal masses. Hepatic steatosis noted. OSSEOUS: No significant osseous lesions.. IMPRESSION: 1. Mild increased markings in the medial basal segment of the right lower lobe. No large infiltrates nor pleural effusions. No intrathoracic adenopathy evident. 2. Hepatic steatosis noted. 3. No lytic osseous lesions evident. RADIATION DOSE DELIVERED: 822.25mGy.cm Total DLP DATA REPOSITORY: All CT scans at this facility are submitted to the National Radiology Data Registry (NRDR) Dose Index Registry (DIR) with the [employer] (ACR). RADIATION OPTIMIZATION: All CT scans at this facility use at least one of these dose optimization te chniques: automated exposure control; mA and/or kV adjustment per patient size (includes targeted exa ms where dose is matched to clinical indication); or iterative reconstruction.
== END 2020-09-23 02:20 ==
PROVIDERS: PCP Family Medicine; Visit Provider Internal Medicine
DX: R06.00 Dyspnea, unspecified (principal); K76.0 Fatty (change of) liver, not elsewhere classified
CPT/HCPCS: 71250

== ENCOUNTER 2021-01-08 03:04 | Outpatient (CLI) | payer BC, SELFPAY ==
[2021-01-08 12:29] LABS: Abs Immature Grans 0.01 10^3/uL (0.0-0.06); Absolute Basophil Count 0.01 10^3/uL (0.0-0.2); Absolute Eosinophil Count 0.08 10^3/uL (0.0-0.7); Absolute Lymphocyte Count 1.76 10^3/uL (1.2-3.4); Absolute Monocyte Count 0.43 10^3/uL (0.1-0.8); Absolute Neutrophil Count 2.32 10^3/uL (1.2-6.7); Basophils % 0.2; Eosinophils % 1.7; HCT 42.8 % (40.0-50.0); HGB 14.2 g/dL (13.5-17.5); Immature Grans % 0.2; Lymphocytes % 38.2; MCH 29.2 pg (27.0-33.0); MCHC 33.2 % (32.0-36.0); MCV 87.9 fL (80-95); MPV 12.1 fL (8.0-11.0); Monocytes % 9.3; Neutrophils % 50.4; Nucleated RBC 0 %; Platelet Count 201 10^3/uL (130-400); RBC 4.87 10^6/uL (4.36-5.78); RDW 12.1 % (11.8-14.1); RDW-SD 39.1 fL; WBC 4.61 10^3/uL (4.4-10.8)
[2021-01-08 12:44] LABS: Hemoglobin A1C 6.6 % (<5.7)
[2021-01-08 12:47] LABS: ALT 67 U/L (16-63); AST 26 U/L (15-37); Albumin 4.3 g/dL (3.4-5.0); Alkaline Phosphatase 57 U/L (46-116); Anion Gap 10.3 mmol/L (3-11); BUN 21 mg/dL (7-18); Bilirubin, Total 0.5 mg/dL (0.2-1.0); CO2 25.7 mmol/L (21.0-32.0); Calcium 9.2 mg/dL (8.5-10.1); Chloride 102 mmol/L (98-107); Glucose 121 mg/dL (74-106); Potassium 4.6 mmol/L (3.5-5.1); Sodium 138 mmol/L (136-145); Total Protein 7.4 g/dL (6.4-8.2)
== END 2021-01-08 03:05 | disposition home or self-care (01) ==
LOC: LOS 03:04
PROVIDERS: PCP Family Medicine; Visit Provider Family Medicine
DX: R55 Syncope and collapse (principal); R73.9 Hyperglycemia, unspecified
CPT/HCPCS: 36415; 80053; 83036; 85025

== ENCOUNTER → 2021-08-27 00:29 | Outpatient (CLI) | payer BC, SELFPAY ==
--- NOTE | 2021-08-27 08:30 | DI.MRI_ITS ---
Exam(s) MR UPPER JOINT LT WO EXAM: MR UPPER JOINT LT WO CLINICAL HISTORY: LT SHOULDER TENDINITIS M77.8. TECHNIQUE: Multiplanar multisequence MRI was performed. COMPARISON: CR XR SHOULDER LEFT from 03/13/2021 CR XR SHOULDER LEFT from 03/13/2021 FINDINGS: BONES: There is no fracture or contusion pattern. JOINTS: Degenerative changes are seen at the acromioclavicular joint. The glenohumeral joint is norm al. TENDONS: Supraspinatus: There is tendinosis of the supraspinatus tendon. No evidence of a full-thickness tear is seen. Infraspinatus: There is a question of tendinosis of the infraspinatus tendon. No evidence of a full- thickness tear. Subscapularis: Unremarkable. Teres Minor: Unremarkable. Biceps and Ducor: Unremarkable. MUSCLES: Unremarkable. GLENOID LABRUM: Unremarkable on this noncontrast examination. SOFT TISSUES: Unremarkable. LIGAMENTS: Unremarkable. OTHER: Subacromial and subdeltoid bursae are unremarkable. IMPRESSION: Tendinosis of the supraspinatus and infraspinatus tendons. No evidence of a full-thickness rotator c uff tear. DATA REPOSITORY:
== END ==
PROVIDERS: PCP Family Medicine; Visit Provider Nurse Practitioner
DX: M77.8 Other enthesopathies, not elsewhere classified (principal)
CPT/HCPCS: 73221

== ENCOUNTER 2021-09-10 01:19 | Outpatient (CLI) | payer BC, SELFPAY ==
[2021-09-10 08:34] LABS: Hemoglobin A1C 6.6 % (<5.7)
[2021-09-10 09:00] LABS: Calculated LDL 152 mg/dL (<100); Cholesterol 218 mg/dL (<200); HDL Cholesterol 49 mg/dL (40-60); Triglyceride 87 mg/dL (<150)
[2021-09-10 16:55] LABS: PSA, Screening 1.9 ng/mL (0.0-3.5)
== END 2021-09-10 01:20 | disposition home or self-care (01) ==
LOC: LBO 01:19
PROVIDERS: PCP Family Medicine; Visit Provider Family Medicine
DX: E78.5 Hyperlipidemia, unspecified (principal); R73.9 Hyperglycemia, unspecified; Z12.5 Encounter for screening for malignant neoplasm of prostate
CPT/HCPCS: 36415; 80061; 84153; 83036

== ENCOUNTER 2022-04-15 01:15 | Outpatient (CLI) | payer BC, SELFPAY ==
[2022-04-15 13:02] LABS: CREATININE 0.9 mg/dL (0.70-1.30); Potassium 4.1 mmol/L (3.5-5.1)
== END 2022-04-15 01:16 | disposition home or self-care (01) ==
LOC: LOS 01:15
PROVIDERS: PCP Family Medicine; Visit Provider Family Medicine
DX: I10 Essential (primary) hypertension (principal)
CPT/HCPCS: 36415; 82565; 84132

== ENCOUNTER 2022-07-27 13:38 | Outpatient (REF) | payer BC, SELFPAY ==
[2022-07-27 20:42] LABS: Abs Immature Grans 0.01 10^3/uL (0.0-0.06); Absolute Basophil Count 0.03 10^3/uL (0.0-0.2); Absolute Eosinophil Count 0.09 10^3/uL (0.0-0.7); Absolute Lymphocyte Count 2.87 10^3/uL (1.2-3.4); Absolute Monocyte Count 0.55 10^3/uL (0.1-0.8); Absolute Neutrophil Count 3.69 10^3/uL (1.2-6.7); Basophils % 0.4; Eosinophils % 1.2; HCT 41.9 % (40.0-50.0); HGB 14.2 g/dL (13.5-17.5); Immature Grans % 0.1; Lymphocytes % 39.6; MCH 29.5 pg (27.0-33.0); MCHC 33.9 % (32.0-36.0); MCV 87 fL (80-95); MPV 12.2 fL (8.0-11.0); Monocytes % 7.6; Neutrophils % 51.1; Platelet Count 191 10^3/uL (130-400); RBC 4.81 10^6/uL (4.36-5.78); RDW 11.8 % (11.8-14.1); RDW-SD 38.4 fL; WBC 7.24 10^3/uL (4.4-10.8)
[2022-07-27 20:44] LABS: ESR 15 mm/hr (0-20)
[2022-07-27 20:46] LABS: ALT 45 U/L (16-63); AST 21 U/L (15-37); Albumin 4.4 g/dL (3.4-5.0); Alkaline Phosphatase 60 U/L (46-116); Anion Gap 9.7 mmol/L (3-11); BUN 20 mg/dL (7-18); Bilirubin, Total 0.4 mg/dL (0.2-1.0); CO2 26.3 mmol/L (21.0-32.0); CREATININE 0.9 mg/dL (0.70-1.30); Calcium 9.4 mg/dL (8.5-10.1); Chloride 102 mmol/L (98-107); Estimated GFR 97.78 (mL/min/1.73m2); Glucose 94 mg/dL (74-106); Potassium 3.9 mmol/L (3.5-5.1); Sodium 138 mmol/L (136-145); Total Protein 7.9 g/dL (6.4-8.2)
[2022-07-31 01:04] LABS: Anaplasma phagocytophilum Negative (Negative); B. miyamotoi PCR Negative (Negative); Babesia divergens/MO-1 Negative (Negative); Babesia duncani Negative (Negative); Babesia microti Negative (Negative); Ehrlichia chaffeensis Negative (Negative); Ehrlichia ewingii/canis Negative (Negative); Ehrlichia muris eauclairensis Negative (Negative)
== END 2022-07-27 13:39 | disposition home or self-care (01) ==
LOC: LBN 13:38
PROVIDERS: PCP Family Medicine; Visit Provider Nurse Practitioner Family
DX: R51.9 Headache, unspecified (principal)
CPT/HCPCS: 80053; 85652; 87798; 85025; 86618

== ENCOUNTER 2022-09-30 15:27 | Outpatient (REF) | payer BC, SELFPAY ==
[2022-09-30 14:17] LABS: COMMENT (LAB VIEW ONLY) 82.89 mg/dL
== END 2022-09-30 15:28 | disposition home or self-care (01) ==
LOC: LBN 15:27
PROVIDERS: PCP Family Medicine; Visit Provider Family Medicine
DX: E11.9 Type 2 diabetes mellitus without complications (principal)
CPT/HCPCS: 82043; 82570

== ENCOUNTER 2022-10-08 10:58 | Outpatient (CLI) | payer BC, SELFPAY ==
--- NOTE | 2022-10-08 | DI.MRI_ITS ---
Exam(s) MR UPPER JOINT LT WO EXAM: MR UPPER JOINT LT WO CLINICAL HISTORY: COMPLETE ROTATOR CUFF TEAR LT SHOULDER, M75.122. TECHNIQUE: Multiplanar multisequence MRI was performed. COMPARISON: MR MR UPPER JOINT LT WO from 08/27/2021 FINDINGS: BONES: There is no fracture or contusion pattern. There are now postsurgical changes seen in the sai ral head and acromion. There are cystic changes associated with the acromion. JOINTS: Moderate degenerative changes are seen at the acromioclavicular joint. The glenohumeral join t is normal. TENDONS: Supraspinatus: There is tendinosis of the supraspinatus tendon. There does appear to be a focus of h yperintense signal seen in the supraspinatus tendon at its insertion site suspicious for partial tear . Infraspinatus: Unremarkable. Subscapularis: Unremarkable. Teres Minor: Unremarkable. Biceps and Silver Plume: The patient appears to have had a biceps tenodesis. Please correlate clinically. MUSCLES: Unremarkable. GLENOID LABRUM: Unremarkable on this noncontrast examination. SOFT TISSUES: Unremarkable. LIGAMENTS: Unremarkable. OTHER: There is fluid in the subacromial subdeltoid bursa. IMPRESSION: 1. Postsurgical changes in the shoulder with a rotator cuff repair and probable biceps tenodesis. 2. Tendinosis of the supraspinatus with a question of a small partial tendon tear. 3. Cystic changes in the acromion and small amount of fluid in the subacromial subdeltoid bursa. DATA REPOSITORY:
== END 2022-10-08 11:18 ==
PROVIDERS: PCP Family Medicine; Visit Provider Specialist
DX: M75.122 Complete rotator cuff tear or rupture of left shoulder, not specified as traumatic (principal); M75.22 Bicipital tendinitis, left shoulder; S46.212A Strain of muscle, fascia and tendon of other parts of biceps, left arm, initial encounter; X58.XXXA Exposure to other specified factors, initial encounter
CPT/HCPCS: 73221

== ENCOUNTER 2023-01-21 15:46 | Emergency (ER) | payer BC, SELFPAY ==
[2023-01-21 15:50] VITALS: BP 132/85; PULSE 62; RESP 14; TEMP 37.1; O2SAT 97
--- NOTE | 2023-01-21 16:00 | RT.EKG_ITS ---
APPROVED REPORT Exam: Resting ECG Reason for Exam: epigastric pain Patient Location: E HR:56 bpm ECG Measurements Heart Rate 56 AXIS NH 186 P 64 QRSd 106 QRS 3 QT 449 T 14 QTc 435 Conclusion Sinus bradycardia...rate< 60
--- NOTE | 2023-01-21 16:23 | DI.CT_ITS ---
Exam(s) CT CHEST PE ABD PELVIS W EXAM: CT CHEST PE ABD PELVIS W CLINICAL HISTORY: right shoulder and chest pain, sob post covid. TECHNIQUE: Imaging Protocol: Axial CT angiography was performed with multi-slice acquisition and mu lti-planar and/or 3D reconstructions. CONTRAST MATERIAL: Intravenous: Omnipaque 350 Contrast volume:100 ml COMPARISON: CT CT CHEST PE CTA from 04/28/2020 FINDINGS: CHEST: Pulmonary Arteries: Question of an eccentric filling defect of a medial left lower lobe branch pulmon rina artery. Questionable linear defect in the left upper lobe branch artery. No acute pulmonary emb osvaldo. Tracheobronchial tree: Patent where visualized. Mediastinum and Kelli: No dominant adenopathy or fluid collection. Pulmonary parenchyma: No consolidation or dominant measurable mass. Dependent changes. Pleura: No effusion or pneumothorax. Heart: The heart is not dilated. No coronary artery calcifications are seen. Aorta: Thoracic aorta non-dilated. Bones: Prominent osteophytes. Tubes, Catheters, and Lines: None ABDOMEN: Liver: Normal density. No measurable mass. Portal, Superior Mesenteric, and Splenic Veins: Unremarkable. Gallbladder and Biliary Tract: No radiodense calculus or dilation. Pancreas: Normal density, no abnormal calcifications or inflammatory process. Spleen: Normal. Adrenals: No masses seen. Kidneys: Normal size, contour and axis. No radiodense stones or obstructive uropathy. No masses seen. Abdominal Aorta: Abdominal portion non-dilated. Mild atherosclerotic changes. Bowel: No obstruction or bowel wall thickening. Appendix is unremarkable. Peritoneal Cavity: No ascites, collection or mesenteric inflammatory response. Lymph Nodes: Within normal limits. Bones: Mild degenerative changes of the lumbar spine. Soft Tissues: Unremarkable. PELVIS: Bladder: Symmetric distention, no gross wall thickening. Reproductive Organs: Unremarkable as visualized. Lymph Nodes: Within normal limits. Bones: Within normal limits. IMPRESSION: 1. No evidence of acute pulmonary embolism. Questionable tiny eccentric filling defects in left upp er and lobe pulmonary artery branches which could represent minimal residual embolus versus artifact. 2. No acute abdominal or pelvic process. RADIATION DOSE DELIVERED: 1,740.24mGy.cm Total DLP DATA REPOSITORY: All CT scans at this facility are submitted to the National Radiology Data Registry (NRDR) Dose Index Registry (DIR) with the [employer] (ACR). RADIATION OPTIMIZATION: All CT scans at this facility use at least one of these dose optimization te chniques: automated exposure control; mA and/or kV adjustment per patient size (includes targeted exa ms where dose is matched to clinical indication); or iterative reconstruction.
[2023-01-21 16:31] LABS: Abs Immature Grans 0.01 10^3/uL (0.0-0.06); Absolute Basophil Count 0.03 10^3/uL (0.0-0.2); Absolute Eosinophil Count 0.12 10^3/uL (0.0-0.7); Absolute Lymphocyte Count 2.62 10^3/uL (1.2-3.4); Absolute Monocyte Count 0.56 10^3/uL (0.1-0.8); Basophils % 0.4; Eosinophils % 1.5; HCT 41.2 % (40.0-50.0); Immature Grans % 0.1; Lymphocytes % 32.6; MCH 29.2 pg (27.0-33.0); MCV 86 fL (80-95); MPV 11.1 fL (8.0-11.0); Neutrophils % 58.4; Platelet Count 203 10^3/uL (130-400); RDW 12.1 % (11.8-14.1); RDW-SD 38.3 fL; WBC 8.04 10^3/uL (4.4-10.8)
--- NOTE | 2023-01-21 16:46 | ED.GENADUL_ITS ---
Discharge Plan Discharge Details Chief Complaint: Abd Prob Primary Care Provider: Sukhwinder Dumont ED Provider: Christina Currie Home Meds and New Rx's Prescriptions: No Action (DME) blood-glucose meter [OneTouch Verio Meter] 1 EACH misc 1 ea Miscellaneous DAILY Qty: 1 (DME) FreeStyle Issac 2 Shiloh Misc See Rx Instructions .ROUTE .MEDSUPPLY Qty: 1 0RF Rx Instructions: As directed albuterol sulfate [Ventolin HFA] 90 mcg/actuation HFA aerosol inhaler 2 puff IH QID PRN (Reason: shortness of breath or wheezing) Qty: 8.5 12RF atorvastatin 40 mg tablet 40 mg PO QHS Qty: 90 3RF losartan-hydrochlorothiazide 100-12.5 mg tablet 1 tab PO DAILY Qty: 90 3RF metformin 500 mg tablet 500 mg PO DAILY Qty: 90 3RF Rx Instructions: omeprazole 40 mg capsule,delayed release(DR/EC) 40 mg PO DAILY Qty: 90 3RF sertraline [Zoloft] 50 mg tablet 50 mg PO HS Qty: 90 3RF (DME) FreeStyle Issac 2 Sensor Kit See Rx Instructions .ROUTE .MEDSUPPLY Qty: 3 3RF Rx Instructions: As directed ondansetron HCl 4 mg tablet 4 mg PO Q8H PRN (Reason: nausea and vomiting) Qty: 20 0RF (DME) blood sugar diagnostic Strip See Rx Instructions .ROUTE .MEDSUPPLY Qty: 100 3RF Rx Instructions: test daily HPI General Date/Time Provider Initiated Documentation: 01/21/23 16:03 . Related Data Home Medications Medication Instructions Recorded Confirmed blood-glucose meter (OneTouch ##1 11/03/16 12/31/22 Verio Meter) flash glucose scanning reader #1 ea 09/20/21 12/31/22 (FreeStyle Issac 2 Shiloh) albuterol sulfate 90 mcg/actuation 2 puff inhalation QID PRN 07/28/22 12/31/22 aerosol inhaler (Ventolin HFA) shortness of breath or wheezing #8.5 grams atorvastatin 40 mg tablet 40 mg PO QHS #90 tabs 01/11/23 flash glucose sensor (FreeStyle #3 ea 01/11/23 Issac 2 Sensor kit) losartan 100 1 tab PO DAILY #90 tabs 04/17/23 mg-hydrochlorothiazide 12.5 mg tablet metformin 500 mg tablet 500 mg PO DAILY #90 tabs 01/11/23 omeprazole 40 mg capsule,delayed 40 mg PO DAILY #90 caps 01/11/23 release sertraline 50 mg tablet (Zoloft) 50 mg PO HS #90 tab-caps 01/11/23 ondansetron HCl 4 mg tablet 4 mg PO Q8H PRN nausea and 01/19/23 vomiting #20 tabs blood sugar diagnostic #100 ea 01/21/23 Previous Rx's Medication Instructions Recorded flash glucose scanning reader #1 ea 09/20/21 (FreeStyle Issac 2 [place]iloh) albuterol sulfate 90 mcg/actuation 2 puff inhalation QID PRN 07/28/22 aerosol inhaler (Ventolin HFA) shortness of breath or wheezing #8.5 grams atorvastatin 40 mg tablet 40 mg PO QHS #90 tabs 01/11/23 flash glucose sensor (FreeStyle #3 ea 01/11/23 Issac 2 Sensor kit) losartan 100 1 tab PO DAILY #90 tabs 01/11/23 mg-hydrochlorothiazide 12.5 mg tablet metformin 500 mg tablet 500 mg PO DAILY #90 tabs 01/11/23 omeprazole 40 mg capsule,delayed 40 mg PO DAILY #90 caps 01/11/23 release sertraline 50 mg tablet (Zoloft) 50 mg PO HS #90 tab-caps 01/11/23 ondansetron HCl 4 mg tablet 4 mg PO Q8H PRN nausea and 01/19/23 vomiting #20 tabs blood sugar diagnostic #100 ea 01/21/23 Allergies Allergy/AdvReac Type Severity Reaction Status Date / Time No Known Allergies Allergy Verified 12/31/22 15:53 General Stated Complaint: Abd Prob ZULAY: 3 PFSH All Active Problems (Updated 12/31/22 @ 16:48 by Sukhwinder Dumont MD) Facial flushing (Acute) RUQ abdominal pain (Acute) Headache (Acute) Sinusitis (Acute) Syncope (Chronic) Shortness of breath (Acute) Lung nodule (Acute) Low back pain (Acute) Diabetes mellitus (Chronic) Actinic keratosis (Acute ~06/2019) Unilateral inguinal hernia (Acute 08/26/95) left Rotator cuff tear arthropathy of right shoulder (Acute 03/10/16) surgery 2016 Polyp of colon (Acute 11/06/13) 11/06/13; 2 POLYPS; colonic mucosa Impaired fasting glucose (Acute 08/26/04) Hyperlipidemia with target LDL less than 100 (Acute) Fatty liver disease, nonalcoholic (Acute 10/10/14) Essential hypertension (Acute 07/18/13) Gastro-esophageal reflux disease with esophagitis (Acute) H/O Depressive disorder (Acute) Medical History Shingles Surgical History Colonoscopy - MAC (11/06/13) Repair, Rotator Cuff (01/31/16) Family History (Updated 03/31/22 @ 15:45 by Odalys Michaud) Mother , 78 ALS (amyotrophic lateral sclerosis) Essential hypertension Hyperlipidemia Father , 84 Heart disease Sister , 64 Lung cancer Brother , 63 Heart disease Stroke Brother Stroke Brother Hyperlipidemia Son No problems noted. Son No problems noted. Social History (Updated 03/31/22 @ 15:43 by Odalys Michaud) Smoking/Tobacco Use Status: Former Tobacco Use tobacco type: cigarettes Quit Date: 09/27/93 Tobacco: How many years used: 7 Second Hand Exposure: Yes Smoking risk assessment performed?: Yes Alcohol Intake: current Alcohol Intake frequency: a few times a week Alcohol type: beer and wine Drug use: Never Substance use type: does not use Caregiver/Support person: No Household members: spouse Housing: house Communication Needs: None Do you need help understanding health information?: Never Pets and animals: Yes Pets and animals: dog(s) Sexually active: Yes Do you think of yourself as: straight/heterosexual Current gender identity: male What is your relationship status?: How often do you talk on the phone with friends or family?: three or more times per week How often do you get together with friends or relatives?: three or more times per week How often do you attend mu-ism or zoroastrian services?: decline to answer Do you belong to any clubs or organized social groups?: no Panel score (0-1 are the most socially isolated patients): 2 What type of physical activity do you participate in: walking and bicycling Duration: 45-60 minutes/day Frequency: 3-4 times per week Terese/Yarsani: No preference Special terese needs: No Seatbelt use: always Helmet use: Yes Drive 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 Do you feel safe at home: Yes Do you feel safe in your relationship?: Yes Course Vital Signs Vital signs: Vital Signs Temperature 37.1 C 01/21/23 15:50 Pulse 62 01/21/23 15:50 Respiratory Rate 14 01/21/23 15:50 Blood Pressure 132/85 01/21/23 15:50 Pulse Oximetry 97 01/21/23 15:50 Temperature 37.1 C 01/21/23 15:50 Temperature Source Skin 01/21/23 15:50 Pulse 62 01/21/23 15:50 Respiratory Rate 14 01/21/23 15:50 Respiratory Effort Normal, Non-Labored 01/21/23 16:12 Blood Pressure 132/85 01/21/23 15:50 Blood Pressure Position Sitting 01/21/23 15:50 Pulse Oximetry 97 01/21/23 15:50 Oxygen Delivery Method Room Air 01/21/23 15:50 Oxygen Flow Rate 0 01/21/23 15:50 Pain Level 8 01/21/23 15:50 Comment 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 01/21/23 15:50 Lab/Test Results Lab/Test Results: Laboratory Tests Range/Units 01/21/23 16:27 WBC (4.4-10.8) 10^3/uL 8.04 RBC (4.36-5.78) 10^6/uL 4.80 Hgb (13.5-17.5) g/dL 14.0 Hct (40.0-50.0) % 41.2 MCV (80-95) fL 86 MCH (27.0-33.0) pg 29.2 MCHC (32.0-36.0) % 34.0 RDW (11.8-14.1) % 12.1 Plt Count (130-400) 10^3/uL 203 MPV (8.0-11.0) fL 11.1 H Immature Gran % 0.1 Neutrophils % 58.4 Lymphocytes % 32.6 Monocytes % 7.0 Eosinophils % 1.5 Basophils % 0.4 Nucleated RBC % (0.0-0.3) % 0.0 Absolute Neutrophils (1.2-6.7) 10^3/uL 4.70 Absolute Lymphocytes (1.2-3.4) 10^3/uL 2.62 Absolute Monocytes (0.1-0.8) 10^3/uL 0.56 Absolute Eosinophils (0.0-0.7) 10^3/uL 0.12 Absolute Basophils (0.0-0.2) 10^3/uL 0.03
[2023-01-21] MEDS: Omnipaque 350 MG/ML 100 ML BTL IJ (16:49)
[2023-01-21] MEDS: Normal Saline - Diluent 50 ML VIAL IJ (16:49)
[2023-01-21 16:50] LABS: Bilirubin Negative (Negative); Blood Negative (Negative); Clarity Clear (Clear); Glucose Negative (Negative); Ketones Negative (Negative); Leukocyte Esterase Negative (Negative); Nitrite Negative (Negative); Urobilinogen 0.2 mg/dL (Up to 0.2)
[2023-01-21] MEDS: oxyCODONE 5 MG TAB PO (16:56)
[2023-01-21 16:57] LABS: ALT 63 U/L (16-63); AST 24 U/L (15-37); Albumin 4.3 g/dL (3.4-5.0); Alkaline Phosphatase 62 U/L (46-116); BUN 18 mg/dL (7-18); Bilirubin, Total 0.4 mg/dL (0.2-1.0); Calcium 9.2 mg/dL (8.5-10.1); Chloride 101 mmol/L (98-107); Creatine Kinase 89 U/L (39-308); Estimated GFR 85.63 (mL/min/1.73m2); Glucose 97 mg/dL (74-106); Lipase 52 U/L (16-77); Potassium 3.7 mmol/L (3.5-5.1); Sodium 136 mmol/L (136-145); Total Protein 7.8 g/dL (6.4-8.2); Troponin I < 50 ng/L (<or=60)
--- NOTE | 2023-01-21 17:19 | W.ED.GENAD ---
Discharge Plan Disposition Patient Disposition: Home Discharge Details Clinical Impression: Back pain, Abdominal pain, epigastric, Fatty liver, Chronic pulmonary embolism Primary Care Provider: Sukhwinder Dumont ED Provider: Christina Currie Home Meds and New Rx's Prescriptions: New famotidine [Pepcid] 20 mg tablet 20 mg PO BID Qty: 30 0RF sucralfate [Carafate] 1 gram tablet 1 g PO BID Qty: 60 0RF oxycodone 5 mg capsule 5 mg PO BID PRNQty: 7 0RF prednisone 20 mg tablet 40 mg PO ONCE Qty: 10 0RF Continued (DME) blood-glucose meter [OneTouch Verio Meter] 1 EACH misc 1 ea Miscellaneous DAILY Qty: 1 (DME) FreeStyle Issac 2 [place] Misc See Rx Instructions .ROUTE .MEDSUPPLY Qty: 1 0RF Rx Instructions: As directed albuterol sulfate [Ventolin HFA] 90 mcg/actuation HFA aerosol inhaler 2 puff IH QID PRN (Reason: shortness of breath or wheezing) Qty: 8.5 12RF atorvastatin 40 mg tablet 40 mg PO QHS Qty: 90 3RF losartan-hydrochlorothiazide 100-12.5 mg tablet 1 tab PO DAILY Qty: 90 3RF metformin 500 mg tablet 500 mg PO DAILY Qty: 90 3RF Rx Instructions: omeprazole 40 mg capsule,delayed release(DR/EC) 40 mg PO DAILY Qty: 90 3RF sertraline [Zoloft] 50 mg tablet 50 mg PO HS Qty: 90 3RF (DME) FreeStyle Issac 2 Sensor Kit See Rx Instructions .ROUTE .MEDSUPPLY Qty: 3 3RF Rx Instructions: As directed ondansetron HCl 4 mg tablet 4 mg PO Q8H PRN (Reason: nausea and vomiting) Qty: 20 0RF (DME) blood sugar diagnostic Strip See Rx Instructions .ROUTE .MEDSUPPLY Qty: 100 3RF Rx Instructions: test daily Discharge Instructions Instructions: Back Pain (ED), Epigastric Pain (ED) Additional Instructions: Stay away from coffee, alcohol, acidic foods, fatty foods Take the Pepcid daily in addition to your omeprazole, take the Carafate daily I given you several tablets of oxycodone, you may take this as needed You also have a prescription for prednisone, and wait till after your test tomorrow to take this medication, this may help with your back Please follow-up with your doctor next week, I placed a follow-up for your doctor and surgery Your test today are otherwise reassuring Please review your CAT scan findings with your PCP next week Referrals: Sukhwinder Dumont MD [Primary Care Provider] - Medical Decision Making 62-year-old male appears well, he has some mild right upper quadrant tenderness, he is in no acute distress His vitals are stable Symptoms have been present for 4 to 5 weeks, worsening CTA chest, CT abdomen and pelvis were ordered for further evaluation CTA chest shows chronic pulmonary embolism, no evidence of acute obstruction, this case was discussed with Dr. Naidu, radiologist and he states that there is no immediate intervention, specifically no anticoagulation recommended, patient has not had hypoxic, tachycardic, or tachypneic, he is encouraged to talk to his doctor about this finding although the recommendation was not to anticoagulate as there is no evidence of obstructive pulmonary embolism or acute pulmonary embolism CT abdomen and pelvis does not show evidence of acute abnormality, mild to moderate central canal stenosis to lumbar spine, this was reviewed with patient and they be causing his back pain, will give Carafate, Pepcid, he will continue his omeprazole Small amount of prednisone and oxycodone, risk of addiction reviewed Will need close outpatient follow-up, referral to surgery for endoscopy and colonoscopy Encourage close outpatient follow-up Return precautions reviewed and patient expressed understanding Medical Records Medical records reviewed: Yes I reviewed the patient's medical records. Lab Data Lab results reviewed: Yes I reviewed the patient's lab results. HPI General Date/Time Provider Initiated Documentation: 01/21/23 16:03. HPI Narrative: This 62-year-old male with a recent diagnosis of hepatic steatosis presents with right upper quadrant pain for the past 4 weeks worsening with right lower back pain. States he underwent ultrasound and was for general (GI, has yet to have an appointment. Denies any fever or chills. He denies any chest pain. He has some mildly increased shortness of breath but he attributes this to today COVID infection rehab at the end of November. He denies pleuritic pain he states that the pain in his right upper quadrant is exacerbated with eating any sort of food, not specifically fatty foods. He describes the pain as an aching sensation. He denies any additional radiation. He drinks 1-2 drinks every weekend but denies regular alcohol consumption. He denies any tobacco use. Denies any anticoagulation. Related Data Home Medications Medication Instructions Recorded Confirmed blood-glucose meter (OneTouch ##1 11/03/16 12/31/22 Verio Meter) flash glucose scanning reader #1 ea 09/20/21 12/31/22 (FreeStyle Issac 2 Napoleon) albuterol sulfate 90 mcg/actuation 2 puff inhalation QID PRN 07/28/22 12/31/22 aerosol inhaler (Ventolin HFA) shortness of breath or wheezing #8.5 grams atorvastatin 40 mg tablet 40 mg PO QHS #90 tabs 01/11/23 flash glucose sensor (FreeStyle #3 ea 01/11/23 Issac 2 Sensor kit) losartan 100 1 tab PO DAILY #90 tabs 01/11/23 mg-hydrochlorothiazide 12.5 mg tablet metformin 500 mg tablet 500 mg PO DAILY #90 tabs 01/11/23 omeprazole 40 mg capsule,delayed 40 mg PO DAILY #90 caps 01/11/23 release sertraline 50 mg tablet (Zoloft) 50 mg PO HS #90 tab-caps 01/11/23 ondansetron HCl 4 mg tablet 4 mg PO Q8H PRN nausea and 01/19/23 vomiting #20 tabs blood sugar diagnostic #100 ea 01/21/23 famotidine 20 mg tablet (Pepcid) 20 mg PO BID #30 tabs 01/21/23 oxycodone 5 mg capsule 5 mg PO BID PRN #7 caps 01/21/23 prednisone 20 mg tablet 40 mg PO ONCE #10 tabs 01/21/23 sucralfate 1 gram tablet (Carafate) 1 g PO BID #60 tabs 01/21/23 Previous Rx's Medication Instructions Recorded flash glucose scanning reader #1 ea 09/20/21 (FreeStyle Issac 2 [place]) albuterol sulfate 90 mcg/actuation 2 puff inhalation QID PRN 07/28/22 aerosol inhaler (Ventolin HFA) shortness of breath or wheezing #8.5 grams atorvastatin 40 mg tablet 40 mg PO QHS #90 tabs 01/11/23 flash glucose sensor (FreeStyle #3 ea 01/11/23 Issac 2 Sensor kit) losartan 100 1 tab PO DAILY #90 tabs 01/11/23 mg-hydrochlorothiazide 12.5 mg tablet metformin 500 mg tablet 500 mg PO DAILY #90 tabs 01/11/23 omeprazole 40 mg capsule,delayed 40 mg PO DAILY #90 caps 01/11/23 release sertraline 50 mg tablet (Zoloft) 50 mg PO HS #90 tab-caps 01/11/23 ondansetron HCl 4 mg tablet 4 mg PO Q8H PRN nausea and 01/19/23 vomiting #20 tabs blood sugar diagnostic #100 ea 01/21/23 famotidine 20 mg tablet (Pepcid) 20 mg PO BID #30 tabs 01/21/23 oxycodone 5 mg capsule 5 mg PO BID PRN #7 caps 01/21/23 prednisone 20 mg tablet 40 mg PO ONCE #10 tabs 01/21/23 sucralfate 1 gram tablet (Carafate) 1 g PO BID #60 tabs 01/21/23 Allergies Allergy/AdvReac Type Severity Reaction Status Date / Time morphine AdvReac Mild nausea Verified 01/21/23 21:11 General Stated Complaint: Abd Prob ZULAY: 2 PFSH All Active Problems (Updated 01/21/23 @ 18:31 by ANDRÉS Hartman) Back pain (Acute) Abdominal pain, epigastric (Acute) Fatty liver (Acute) Chronic pulmonary embolism (Acute) Facial flushing (Acute) RUQ abdominal pain (Acute) Headache (Acute) Sinusitis (Acute) Syncope (Chronic) Shortness of breath (Acute) Lung nodule (Acute) Low back pain (Acute) Diabetes mellitus (Chronic) Actinic keratosis (Acute ~06/2019) Unilateral inguinal hernia (Acute 08/26/95) left Rotator cuff tear arthropathy of right shoulder (Acute 03/10/16) surgery 2016 Polyp of colon (Acute 11/06/13) 11/06/13; 2 POLYPS; colonic mucosa Impaired fasting glucose (Acute 08/26/04) Hyperlipidemia with target LDL less than 100 (Acute) Fatty liver disease, nonalcoholic (Acute 10/10/14) Essential hypertension (Acute 07/18/13) Gastro-esophageal reflux disease with esophagitis (Acute) H/O Depressive disorder (Acute) Medical History Shingles Surgical History Colonoscopy - MAC (11/06/13) Repair, Rotator Cuff (01/31/16) Family History (Updated 03/31/22 @ 15:45 by Odalys Michaud) Mother , 78 ALS (amyotrophic lateral sclerosis) Essential hypertension Hyperlipidemia Father , 84 Heart disease Sister , 64 Lung cancer Brother , 63 Heart disease Stroke Brother Stroke Brother Hyperlipidemia Son No problems noted. Son No problems noted. Social History (Updated 03/31/22 @ 15:43 by Odalys Michaud) Smoking/Tobacco Use Status: Former Tobacco Use tobacco type: cigarettes Quit Date: 09/27/93 Tobacco: How many years used: 7 Second Hand Exposure: Yes Smoking risk assessment performed?: Yes Alcohol Intake: current Alcohol Intake frequency: a few times a week Alcohol type: beer and wine Drug use: Never Substance use type: does not use Caregiver/Support person: No Household members: spouse Housing: house Communication Needs: None Do you need help understanding health information?: Never Pets and animals: Yes Pets and animals: dog(s) Sexually active: Yes Do you think of yourself as: straight/heterosexual Current gender identity: male What is your relationship status?: How often do you talk on the phone with friends or family?: three or more times per week How often do you get together with friends or relatives?: three or more times per week How often do you attend mu-ism or taoism services?: decline to answer Do you belong to any clubs or organized social groups?: no Panel score (0-1 are the most socially isolated patients): 2 What type of physical activity do you participate in: walking and bicycling Duration: 45-60 minutes/day Frequency: 3-4 times per week Terese/Lutheran: No preference Special terese needs: No Seatbelt use: always Helmet use: Yes Drive intox or ride w/intox batch mixing truck driver: No Do you feel safe at home: Yes Do you feel safe in your relationship?: Yes Exam Const General: cooperative, comfortable and no acute distress HENMT Mouth: oral mucosae normal Eyes Other: No scleral icterus Resp Effort & Inspection: normal respiratory effort Auscultation: clear to auscultation bilaterally Cardio Rate: regular rate Rhythm: regular rhythm GI Other: Mild right upper quadrant tenderness, no rebound or guarding, no CVA tenderness Skin General skin exam: no rashes or lesions noted Neuro General: patient alert and patient oriented x3 Course Vital Signs Vital signs: Vital Signs Temperature 37.1 C 01/21/23 15:50 Pulse 62 01/21/23 15:50 Respiratory Rate 14 01/21/23 15:50 Blood Pressure 132/85 01/21/23 15:50 Pulse Oximetry 97 01/21/23 15:50 Temperature 37.1 C 01/21/23 15:50 Temperature Source Skin 01/21/23 15:50 Pulse 62 01/21/23 15:50 Respiratory Rate 14 01/21/23 15:50 Respiratory Effort Normal, Non-Labored 01/21/23 16:12 Blood Pressure 132/85 01/21/23 15:50 Blood Pressure Position Sitting 01/21/23 15:50 Pulse Oximetry 97 01/21/23 15:50 Oxygen Delivery Method Room Air 01/21/23 15:50 Oxygen Flow Rate 0 01/21/23 15:50 Pain Level 8 01/21/23 15:50 Comment no otc pain relief mine captain 01/21/23 15:50 Lab/Test Results Lab/Test Results: Laboratory Tests Range/Units 01/21/23 01/21/23 01/21/23 16:00 16:27 16:27 WBC (4.4-10.8) 10^3/uL 8.04 RBC (4.36-5.78) 10^6/uL 4.80 Hgb (13.5-17.5) g/dL 14.0 Hct (40.0-50.0) % 41.2 MCV (80-95) fL 86 MCH (27.0-33.0) pg 29.2 MCHC (32.0-36.0) % 34.0 RDW (11.8-14.1) % 12.1 Plt Count (130-400) 10^3/uL 203 MPV (8.0-11.0) fL 11.1 H Immature Gran % 0.1 Neutrophils % 58.4 Lymphocytes % 32.6 Monocytes % 7.0 Eosinophils % 1.5 Basophils % 0.4 Nucleated RBC % (0.0-0.3) % 0.0 Absolute Neutrophils (1.2-6.7) 10^3/uL 4.70 Absolute Lymphocytes (1.2-3.4) 10^3/uL 2.62 Absolute Monocytes (0.1-0.8) 10^3/uL 0.56 Absolute Eosinophils (0.0-0.7) 10^3/uL 0.12 Absolute Basophils (0.0-0.2) 10^3/uL 0.03 Sodium (136-145) mmol/L 136 Potassium (3.5-5.1) mmol/L 3.7 Chloride (98-107) mmol/L 101 Carbon Dioxide (21.0-32.0) mmol/L 29.0 Anion Gap (3-11) mmol/L 6.0 BUN (7-18) mg/dL 18 Creatinine (0.70-1.30) mg/dL 1.0 Est GFR (CKD-EPI 2020) (mL/min/1.73m2) 85.63 Glucose (74-106) mg/dL 97 Calcium (8.5-10.1) mg/dL 9.2 Total Bilirubin (0.2-1.0) mg/dL 0.4 AST (15-37) U/L 24 ALT (16-63) U/L 63 Alkaline Phosphatase (46-116) U/L 62 Creatine Kinase (39-308) U/L 89 Troponin I (<or=60) ng/L < 50 Total Protein (6.4-8.2) g/dL 7.8 Albumin (3.4-5.0) g/dL 4.3 Lipase (16-77) U/L 52 Urine Color (Yellow) Yellow Urine Clarity (Clear) Clear Urine pH (5-8) 7.[address] [place] (1.005-1.025) 1.020 Urine Protein (Negative) mg/dL Negative Urine Ketones (Negative) mg/dL Negative Urine Blood (Negative) Negative Urine Nitrite (Negative) Negative Urine Bilirubin (Negative) Negative Urine Urobilinogen (Up to 0.2) mg/dL 0.2 Ur Leukocyte Esterase (Negative) Negative Urine Glucose (Negative) mg/dL Negative
--- NOTE | 2023-01-21 17:49 | DI.VRAD_ITS ---
Addendum created by Tony Naidu MD on 01/21/2023 6:08:02 PM EDT: Findings were discussed with Christina Currie at 01/21/2023 6:05 PM EDT. Initial report created on 01/21/2023 5:48:20 PM EDT: PROCEDURE INFORMATION: Exam: CTA Chest With Contrast Exam date and time: 01/21/2023 4:49 PM Age: 62 years old Clinical indication: Shortness of breath; Right-sided; Abdominal pain; Acute TECHNIQUE: Imaging protocol: Computed tomographic angiography of the chest with contrast. COMPARISON: CT CHEST PE CTA 04/28/2020 9:13 AM FINDINGS: Pulmonary arteries: Web-like filling defect of a left upper lobe pulmonary artery (see series 5, image 238). Eccentric filling defect of a left lower lobe pulmonary artery (see series 5, image 358). These were not present on prior study of 04/28/2020. No CT evidence of acute pulmonary artery embolism. Aorta: Mild atherosclerosis at the aortic arch. No aneurysm or dissection. Lungs: Unremarkable. No consolidation. No masses. Pleural spaces: Unremarkable. No pneumothorax. No pleural effusion. Heart: Unremarkable. No cardiomegaly. No pericardial effusion. Coronary arteries: No coronary artery calcification is appreciated. Lymph nodes: Unremarkable. No enlarged lymph nodes. Bones/joints: Prominent right anterior endplate osteophytes of the middle and lower thoracic spine. Posterior disc and osteophyte disease at T8-T9. No gross high-grade spinal canal stenosis of the thoracic spine. Degenerative changes of the cervical spine are incompletely evaluated. Soft tissues: Unremarkable. IMPRESSION: 1. No evidence of acute pulmonary artery embolism. 2. Abnormal appearance of the left upper and lower lobe pulmonary arteries as described above are consistent with subacute to chronic pulmonary embolism but new as compared to 04/28/2020. Correlate with the patient's history. PROCEDURE INFORMATION: Exam: CT Abdomen And Pelvis With Contrast Exam date and time: 01/21/2023 4:49 PM Age: 62 years old Clinical indication: Shortness of breath; Right-sided; Abdominal pain; Acute TECHNIQUE: Imaging protocol: Computed tomography of the abdomen and pelvis with contrast. COMPARISON: CT RENAL COLIC WO 09/23/2019 12:02 PM FINDINGS: Liver: Normal. No mass. Gallbladder and bile ducts: Normal. No calcified stones. No ductal dilation. Pancreas: Normal. No ductal dilation. Spleen: Normal. No splenomegaly. Adrenal glands: Normal. No mass. Kidneys and ureters: Normal. No hydronephrosis. Stomach and bowel: Unremarkable. No obstruction. No mucosal thickening. Appendix: No evidence of appendicitis. Intraperitoneal space: Unremarkable. No free air. No significant fluid collection. Vasculature: Mild atherosclerosis of the abdominal aorta and iliac arteries. No aneurysm or dissection appreciated. Lymph nodes: Unremarkable. No enlarged lymph nodes. Urinary bladder: Unremarkable as visualized. Reproductive: Unremarkable as visualized. Bones/joints: Degenerative changes of the lumbar spine. [id number] spinal canal stenosis at L4-L5. No acute osseous abnormality is identified. Soft tissues: Unremarkable. IMPRESSION: No acute abnormality of the abdomen and pelvis. Dictated and Authenticated by: Tony Naidu MD. Ordering:ROSAURA Vasquez MD
[2023-01-21] MEDS: Famotidine 20 MG/2 ML VIAL IVP (18:27)
[2023-01-21] MEDS: MORPHine 4 MG/ML SYR IVP (18:27)
--- NOTE | 2023-01-21 18:31 | NUR.NOTE ---
Nursing Note: Referral faxed to PCP for chronic PE's and back pain/ next week. Referral faxed to [facility] for abd pain, epigastric pain, needs endoscopy and colonoscopy/within the next 1 to 2 weeks.
[2023-01-21] MEDS: Ondansetron 4 MG/2 ML VIAL IVP (18:47)
[2023-01-21 18:52] VITALS: BP 129/71; PULSE 61; RESP 18; O2SAT 96
== END 2023-01-21 19:11 | disposition home or self-care (01) ==
PROVIDERS: Emergency Provider Physician Assistant; PCP Family Medicine
DX: I27.82 Chronic pulmonary embolism (principal); K76.0 Fatty (change of) liver, not elsewhere classified; M54.9 Dorsalgia, unspecified; M48.061 Spinal stenosis, lumbar region without neurogenic claudication
CPT/HCPCS: 36415; 36416; 71275; 74177; 80053; 82550; 82962; 83690; 93005; 96374; 96375; 99284; 81003; 84484; 85025; 93010; J2270; J2405; J3490

== ENCOUNTER 2023-01-22 09:24 | Outpatient (CLI) | payer BC, SELFPAY ==
[2023-01-22 12:39] LABS: Abs Immature Grans 0.01 10^3/uL (0.0-0.06); Absolute Basophil Count 0.02 10^3/uL (0.0-0.2); Absolute Eosinophil Count 0.07 10^3/uL (0.0-0.7); Absolute Lymphocyte Count 2.01 10^3/uL (1.2-3.4); Absolute Monocyte Count 0.53 10^3/uL (0.1-0.8); Absolute Neutrophil Count 4.49 10^3/uL (1.2-6.7); Basophils % 0.3; HCT 41.9 % (40.0-50.0); Immature Grans % 0.1; Lymphocytes % 28.2; MCH 29.4 pg (27.0-33.0); MCHC 33.4 % (32.0-36.0); MCV 88 fL (80-95); MPV 12.1 fL (8.0-11.0); Monocytes % 7.4; Platelet Count 201 10^3/uL (130-400); RBC 4.76 10^6/uL (4.36-5.78); RDW 12.4 % (11.8-14.1); RDW-SD 40.5 fL; WBC 7.13 10^3/uL (4.4-10.8)
[2023-01-22 12:52] LABS: ALT 57 U/L (16-63); AST 21 U/L (15-37); Albumin 4.3 g/dL (3.4-5.0); Alkaline Phosphatase 63 U/L (46-116); Bilirubin, Direct 0.1 mg/dL (0.0-0.2); Bilirubin, Total 0.4 mg/dL (0.2-1.0); Total Protein 7.7 g/dL (6.4-8.2)
== END 2023-01-22 09:25 | disposition home or self-care (01) ==
LOC: LOS 09:24
PROVIDERS: PCP Family Medicine; Visit Provider Family Medicine
DX: D64.9 Anemia, unspecified (principal); G72.89 Other specified myopathies
CPT/HCPCS: 36415; 80076; 85025

== ENCOUNTER 2023-09-07 13:04 | Emergency (ER) | payer OTHER, SELFPAY ==
[2023-09-07 13:14] VITALS: BP 144/94; PULSE 70; RESP 18; O2SAT 92
--- NOTE | 2023-09-07 13:15 | RT.EKG_ITS ---
APPROVED REPORT Exam: Resting ECG Reason for Exam: Chest Pain Patient Location: E HR:67 bpm ECG Measurements Heart Rate 67 AXIS WI 157 P 59 QRSd 100 QRS 35 QT 401 T 26 QTc 425 Conclusion Sinus rhythm...normal P axis, V-rate 60- 99 Sinus Rhythm. Increase heart rate from prior 01/21/23. WD
--- NOTE | 2023-09-07 13:15 | DI.RAD_ITS ---
Exam(s) XR CHEST 2V PA LATERAL EXAM: XR CHEST 2V PA LATERAL CLINICAL HISTORY: chest pain TECHNIQUE: 2D digital imaging was performed of the chest. Two images were obtained. PA and lateral views were obtained. COMPARISON: CR CHEST 2 VIEWS PA,LAT from 08/29/2014 FINDINGS: MEDIASTINUM: Normal. HEART: Normal. PULMONARY VASCULATURE: Normal. LUNGS: Clear. PLEURAL SPACE: No pleural effusion or pneumothorax. BONE:Within normal limits for the patient's age. OTHER FINDINGS:Normal. IMPRESSION: No acute pulmonary findings. DATA REPOSITORY: RADIATION DOSE DELIVERED:
--- NOTE | 2023-09-07 15:00 | ED.GENADUL_ITS ---
Discharge Plan Disposition Patient Disposition: Home Discharge Details Clinical Impression: Cough Primary Care Provider: Sukhwinder Dumont ED Provider: Roseline Brandon Home Meds and New Rx's Prescriptions: New promethazine 6.25 mg/5 mL syrup 12.5 mg PO Q6H PRN (Reason: cough) Qty: 120 0RF No Action losartan-hydrochlorothiazide 100-12.5 mg tablet 0.5 tab PO DAILY Qty: 90 3RF sertraline [Zoloft] 50 mg tablet 25 mg PO HS Qty: 90 3RF Rx Instructions: dose reduction trial 08/24/23 benzonatate 100 mg capsule 100 mg PO TID PRN (Reason: cough) Qty: 14 0RF doxycycline hyclate 100 mg capsule 100 mg PO BID Qty: 14 0RF (DME) blood-glucose meter [[employer] Verio Meter] 1 EACH misc 1 ea Miscellaneous DAILY Qty: 1 (DME) FreeStyle Issac 2 Freedom Misc See Rx Instructions .ROUTE .MEDSUPPLY Qty: 1 0RF Rx Instructions: As directed atorvastatin 40 mg tablet 40 mg PO QHS Qty: 90 3RF metformin 500 mg tablet 500 mg PO DAILY Qty: 90 3RF Rx Instructions: omeprazole 40 mg capsule,delayed release(DR/EC) 40 mg PO DAILY Qty: 90 3RF (DME) FreeStyle Issac 2 Sensor Kit See Rx Instructions .ROUTE .MEDSUPPLY Qty: 3 3RF Rx Instructions: As directed (DME) blood sugar diagnostic Strip See Rx Instructions .ROUTE .MEDSUPPLY Qty: 100 3RF Rx Instructions: test daily albuterol sulfate [Ventolin HFA] 90 mcg/actuation HFA aerosol inhaler 2 puff IH QID PRN (Reason: shortness of breath or wheezing) Qty: 8.5 12RF Discharge Instructions Additional Instructions: USE INHALER WITH SPACER 2 PUFFS EVERY 4 HOURS FOR THE NEXT 2 DAYS CONTINUE TESSALON PEARLS AND PHENERGAN SYRUP NEEDED FOR COUGH IF NOT IMPROVING PLEASE FOLLOW UP THE [facility] PCP Medical Decision Making Emergent evaluation of cough. Symptoms seem consistent with a viral illness. He is not hypoxic here. His O2 sat is 92-93%. Patient did have a pulmonary evaluation in 2019 and did well on Trelegy at that time. Initial differential includes pneumonia, viral illness, CHF. He is not showing any signs of respiratory distress at this time. Blood work obtained and reviewed. Normal white blood cell count, no anemia, normal platelet count. No elevation in troponin or BNP, doubt cardiac or CHF involvement of this cough. Chest x-ray reviewed and independently interpreted by me, there is no signs of consolidation. At this time I do not feel that the patient needs additional antibiotics. I think he would benefit from increased use of his bronchodilator. He was provided with a spacer and an MDI in the emergency department. Instructed to use 2 puffs every 4 hours for the next 2 days. If his symptoms are not significantly improving, recommend following up with his PCP so that he can be reevaluated and possibly restarted on the Trelegy. Medical Records Medical records reviewed: Yes I reviewed the patient's medical records. Lab Data Lab results reviewed: Yes I reviewed the patient's lab results. HPI General Date/Time Provider Initiated Documentation: 09/07/23 13:25 . HPI Narrative: 62-year-old gentleman with past medical history of GERD, possible COPD presents for evaluation of persistent cough. Symptoms have been ongoing for the last several weeks. He was evaluated in urgent care and diagnosed with bronchitis. He was treated with doxycycline and steroids. He reports that he does not feel better. He still has a cough, productive. He occasionally uses albuterol without a spacer. No fever. No chest pain. Reports a prior pulmonary evaluation in which he was prescribed Trelegy which she took for 6 months. Denies tobacco use. He reports that they were concerned at the urgent care but his because his saturation was low at 91% Related Data Home Medications Medication Instructions Recorded Confirmed blood-glucose meter ([employer]apshot, [employer] ##1 11/03/16 08/30/23 Verio Meter) flash glucose scanning reader #1 ea 09/20/21 08/30/23 (FreeStyle Issac 2 Freedom) atorvastatin 40 mg tablet 40 mg PO QHS #90 tabs 01/11/23 09/07/23 flash glucose sensor (FreeStyle #3 ea 01/11/23 08/30/23 Issac 2 Sensor kit) metformin 500 mg tablet 500 mg PO DAILY #90 tabs 01/11/23 09/07/23 omeprazole 40 mg capsule,delayed 40 mg PO DAILY #90 caps 01/11/23 09/07/23 release blood sugar diagnostic #100 ea 01/21/23 08/30/23 losartan 100 0.5 tab PO DAILY #90 tabs 08/24/23 09/07/23 mg-hydrochlorothiazide 12.5 mg tablet sertraline 50 mg tablet (Zoloft) 25 mg (1/2 x 50 mg) PO HS #90 08/24/23 09/07/23 tab-caps benzonatate 100 mg capsule 100 mg PO TID PRN cough #14 caps 08/30/23 09/07/23 doxycycline hyclate 100 mg capsule 100 mg PO BID #14 caps 08/30/23 09/07/23 albuterol sulfate 90 mcg/actuation 2 puff inhalation QID PRN 09/07/23 09/07/23 aerosol inhaler (Ventolin HFA) shortness of breath or wheezing #8.5 grams promethazine 6.25 mg/5 mL oral 12.5 mg (10 mL) PO Q6H PRN cough 09/07/23 syrup #120 mL Previous Rx's Medication Instructions Recorded flash glucose scanning reader #1 ea 09/20/21 ([employer] Issac 2 Freedom) atorvastatin 40 mg tablet 40 mg PO QHS #90 tabs 01/11/23 flash glucose sensor (FreeStyle #3 ea 01/11/23 Issac 2 Sensor kit) metformin 500 mg tablet 500 mg PO DAILY #90 tabs 01/11/23 omeprazole 40 mg capsule,delayed 40 mg PO DAILY #90 caps 01/11/23 release blood sugar diagnostic #100 ea 01/21/23 losartan 100 0.5 tab PO DAILY #90 tabs 08/24/23 mg-hydrochlorothiazide 12.5 mg tablet sertraline 50 mg tablet (Zoloft) 25 mg (1/2 x 50 mg) PO HS #90 08/24/23 tab-caps benzonatate 100 mg capsule 100 mg PO TID PRN cough #14 caps 08/30/23 doxycycline hyclate 100 mg capsule 100 mg PO BID #14 caps 08/30/23 albuterol sulfate 90 mcg/actuation 2 puff inhalation QID PRN 09/07/23 aerosol inhaler (Ventolin HFA) shortness of breath or wheezing #8.5 grams promethazine 6.25 mg/5 mL oral 12.5 mg (10 mL) PO Q6H PRN cough 09/07/23 syrup #120 mL Allergies Allergy/AdvReac Type Severity Reaction Status Date / Time morphine AdvReac Mild nausea Verified 09/07/23 13:20 General Stated Complaint: Chest Pain ZULAY: 3 PFSH All Active Problems (Updated 09/07/23 @ 16:10 by Roseline Brandon MD) Cough (Acute) Facial flushing (Acute) RUQ abdominal pain (Acute) Headache (Acute) Sinusitis (Acute) Syncope (Chronic) Shortness of breath (Acute) Lung nodule (Acute) Low back pain (Acute) Diabetes mellitus (Chronic) Actinic keratosis (Acute ~06/2019) Unilateral inguinal hernia (Acute 08/26/95) left Rotator cuff tear arthropathy of right shoulder (Acute 03/10/16) surgery 2016 Polyp of colon (Acute 11/06/13) 11/06/13; 2 POLYPS; colonic mucosa Impaired fasting glucose (Acute 08/26/04) Hyperlipidemia with target LDL less than 100 (Acute) Fatty liver disease, nonalcoholic (Acute 10/10/14) Essential hypertension (Acute 07/18/13) Gastro-esophageal reflux disease with esophagitis (Acute) H/O Depressive disorder (Acute) Medical History Shingles Surgical History Repair, Rotator Cuff (01/31/16) Colonoscopy - MAC (11/06/13) Family History Mother , 78 ALS (amyotrophic lateral sclerosis) Essential hypertension Hyperlipidemia Father , 84 Heart disease Sister , 64 Lung cancer Brother , 63 Heart disease Stroke Brother Stroke Brother Hyperlipidemia Son No problems noted. Son No problems noted. Social History Smoking/Tobacco Use Status: Former Tobacco Use tobacco type: cigarettes Quit Date: 09/27/93 Tobacco: How many years used: 7 Second Hand Exposure: Yes Smoking risk assessment performed?: Yes Alcohol Intake: current Alcohol Intake frequency: a few times a week Alcohol type: beer and wine Drug use: Never Substance use type: does not use Caregiver/Support person: No Household members: spouse Housing: house Communication Needs: None Do you need help understanding health information?: Never Pets and animals: Yes Pets and animals: dog(s) Sexually active: Yes Do you think of yourself as: straight/heterosexual Current gender identity: male What is your relationship status?: How often do you talk on the phone with friends or family?: three or more times per week How often do you get together with friends or relatives?: three or more times per week How often do you attend cheondoism or bahai services?: decline to answer Do you belong to any clubs or organized social groups?: no Panel score (0-1 are the most socially isolated patients): 2 What type of physical activity do you participate in: walking and bicycling Duration: 45-60 minutes/day Frequency: 3-4 times per week Terese/Faith: No preference Special terese needs: No Seatbelt use: always Helmet use: Yes Drive intox or ride w/intox local company intermodal truck driver: No Do you feel safe at home: Yes Do you feel safe in your relationship?: Yes Exam Narrative Exam Narrative: Review of Systems: All systems reviewed & are unremarkable except as noted in HPI and below: CONSTITUTIONAL: Alert and oriented Well-developed, no acute distress HEENT: NCAT EYES: PERRL, no conjunctival injection EARS: no external abnormality NOSE nares patent MOUTH Moist MM NECK: Symmetric, trachea midline, No thyromegaly THROAT oropharynx clear CVS: RRR, No murmurs or gallops. Peripheral pulses 2+ and equal in all extremities Brisk capillary refill in all extremities. No peripheral edema RESP: Unlabored respiratory effort, rhonchi at the right base No wheezes GI: Soft, Nontender, Nondistended, No organomegaly MSK: Extremities with full range of motion, no deformity or TTP SKIN: Warm, Dry. No rashes or lesions. NEURO: No focal neurologic deficits. Course Vital Signs Vital signs: Vital Signs Pulse 70 09/07/23 13:14 Respiratory Rate 18 09/07/23 13:14 Blood Pressure 144/94 H 09/07/23 13:14 Pulse Oximetry 92 09/07/23 13:14 Pulse 70 09/07/23 13:14 Respiratory Rate 18 09/07/23 13:14 Respiratory Effort Normal 09/07/23 13:22 Blood Pressure 144/94 H 09/07/23 13:14 Pulse Oximetry 92 09/07/23 13:14 Oxygen Delivery Method Room Air 09/07/23 13:14 Oxygen Flow Rate 0 09/07/23 13:14 Pain Level 2 09/07/23 13:14 PAWSS Have you Been Recently Intoxicated or Drunk Within the Last 30 days?: No Have you Ever Experienced Previous Episodes of Alcohol Withdrawal?: No Have you ever Experienced Withdrawal Seizures?: No Have you ever Experienced Delirium Tremens(DT)s?: No Have you ever undergone Alcohol Rehabilitation Treatment (i.e, inpt ot outpatient treatment programs)?: No Have you ever Experienced Blackouts?: No Have you ever Combined Alcohol with other Downers within the last 90 days?: No Have you ever Combined Alcohol with any other Substance of Abuse during the last 90 days?: No Result: 0
[2023-09-07 15:19] LABS: Abs Immature Grans 0.03 10^3/uL (0.0-0.06); Absolute Basophil Count 0.05 10^3/uL (0.0-0.2); Absolute Eosinophil Count 0.92 10^3/uL (0.0-0.7); Absolute Lymphocyte Count 2.49 10^3/uL (1.2-3.4); Absolute Monocyte Count 0.65 10^3/uL (0.1-0.8); Absolute Neutrophil Count 5.47 10^3/uL (1.2-6.7); BE (Venous) 4 mmol/L (-2-3); Basophils % 0.5; Eosinophils % 9.6; HCO3 (Venous) 29 mmol/L (23-28); HCT 44.8 % (40.0-50.0); Immature Grans % 0.3; Lymphocytes % 25.9; MCH 28.8 pg (27.0-33.0); MCHC 33.5 % (32.0-36.0); MCV 86 fL (80-95); MPV 11.2 fL (8.0-11.0); Monocytes % 6.8; Neutrophils % 56.9; O2 Sat (Venous) 76 %; Platelet Count 231 10^3/uL (130-400); RBC 5.21 10^6/uL (4.36-5.78); RDW-SD 38.1 fL; TCO2 (Venous) 26 mmol/L (24-29); WBC 9.61 10^3/uL (4.4-10.8); pCO2 (Venous) 46 mmHg (41-51); pH (Venous) 7.41 (7.31-7.41); pO2 (Venous) 44 mmHg
[2023-09-07 15:45] LABS: ALT 40 U/L (16-63); AST 16 U/L (15-37); Alkaline Phosphatase 67 U/L (46-116); Anion Gap 5.8 mmol/L (3-11); BUN 19 mg/dL (7-18); Bilirubin, Total 0.4 mg/dL (0.2-1.0); CO2 31.2 mmol/L (21.0-32.0); Calcium 9.5 mg/dL (8.5-10.1); Chloride 100 mmol/L (98-107); Estimated GFR 85.63 (mL/min/1.73m2); Glucose 155 mg/dL (74-106); NT-proBNP 11 pg/mL (<300); Potassium 3.9 mmol/L (3.5-5.1); Sodium 137 mmol/L (136-145); Total Protein 7.6 g/dL (6.4-8.2); Troponin I < 50 ng/L (<or=60)
[2023-09-07] MEDS: Albuterol HFA 8 GM 60 PUFF INH IH (16:35)
[2023-09-07] MEDS: Inhaler, Assist Device 1 EACH MC (16:36)
== END 2023-09-07 16:41 | disposition home or self-care (01) ==
PROVIDERS: Emergency Provider Emergency Medicine; PCP Family Medicine
DX: R07.9 Chest pain, unspecified (principal); R05.9 Cough, unspecified; K21.9 Gastro-esophageal reflux disease without esophagitis; I10 Essential (primary) hypertension; Z79.899 Other long term (current) drug therapy; E11.9 Type 2 diabetes mellitus without complications; Z79.84 Long term (current) use of oral hypoglycemic drugs
CPT/HCPCS: 80053; 82805; 93005; 94640; 99285; 71046; 83880; 84484; 85025; 93010; 99284

== ENCOUNTER 2023-11-10 20:59 | Outpatient (REF) | payer OTHER, SELFPAY ==
[2023-11-10 22:23] LABS: COMMENT (LAB VIEW ONLY) 80.49 mg/dL
== END 2023-11-10 21:00 | disposition home or self-care (01) ==
LOC: LBN 20:59
PROVIDERS: PCP Family Medicine; Visit Provider Family Medicine
DX: E11.9 Type 2 diabetes mellitus without complications (principal)
CPT/HCPCS: 82043; 82570

== ENCOUNTER 2023-12-29 05:05 | Outpatient (CLI) | payer OTHER, SELFPAY ==
[2023-12-29 08:49] LABS: Calculated LDL 113 mg/dL (<100); Cholesterol 186 mg/dL (<200); HDL Cholesterol 49 mg/dL (40-60); Triglyceride 121 mg/dL (<150)
== END 2023-12-29 05:06 | disposition home or self-care (01) ==
LOC: LBO 05:05
PROVIDERS: PCP Family Medicine; Visit Provider Family Medicine
DX: E78.5 Hyperlipidemia, unspecified (principal)
CPT/HCPCS: 36415; 80061

== ENCOUNTER 2024-03-14 05:17 | Outpatient (CLI) | payer OTHER, SELFPAY ==
[2024-03-14] MEDS: Levalbuterol HFA 15 GM INH 4 PUFF IH (16:25)
[2024-03-14] MEDS: Inhaler, Assist Device 1 EACH MC (16:26)
--- NOTE | 2024-04-03 12:49 | W.PFT ---
Date of service: 03/14/24 Time of Service: 14:54 Pulmonary Function Test Result Requesting Provider Sukhwinder Dumont Indications: CARVER, wheezing Interpretation Spirometry: Normal Lung Volumes: Normal Diffusion Capacity: Normal Impression Normal spirometry w/ no reversibility after albuterol. Normal lung volumes w/ no air trapping. Normal diffusion. Normal flow volume loop. Clinical Correlation therefore is recommended.
== END 2024-03-14 05:18 | disposition home or self-care (01) ==
LOC: RT 05:17
PROVIDERS: PCP Family Medicine; Visit Provider Family Medicine
DX: R06.09 Other forms of dyspnea (principal); R06.2 Wheezing
CPT/HCPCS: 00123; 94060; 94726; 94729

== ENCOUNTER 2024-07-31 01:49 | Outpatient (CLI) | payer MEDICAID, SELFPAY ==
--- NOTE | 2024-07-31 08:37 | DI.CT_ITS ---
Exam(s) CT CHEST WO EXAM: CT CHEST WO CLINICAL HISTORY: SOB.r05.9,INTERMITTENT COUGH, COMPARE WITH 08/2023. TECHNIQUE: Imaging protocol: Axial computed tomography images were obtained and coronal and sagittal reformatted images were created and reviewed. Computer aided detection (CAD) was utilized. COMPARISON: CT CT CHEST PE CTA from 09/08/2023 FINDINGS: Tracheobronchial tree: Patent where visualized. No bronchiectasis is present. There is no bronchial wall thickening present. Pulmonary parenchyma: No consolidation or dominant measurable mass. No architectural distortion. Ther e are no new or suspicious pulmonary nodules. Mediastinum and Kelli: No dominant adenopathy or fluid collection. The esophagus is unremarkable. Thyroid gland: Unremarkable. Pleura: No effusion or pneumothorax. Heart: The heart is not dilated. Mild single-vessel coronary artery calcification is present. No per icardial effusion. Aorta: Thoracic aorta non-dilated. Mild atherosclerotic calcification is present. Upper abdomen: There is decreased attenuation of the liver consistent with fatty infiltration. Lymph nodes: Within normal limits. Soft tissues: Unremarkable. Bones:Within normal limits for the patient's age. IMPRESSION: 1. No acute pulmonary process. 2. Resolution of the bronchial wall thickening. No evidence of bronchiectasis. 3. Fatty infiltration of the liver. RADIATION DOSE DELIVERED: 208.27mGy.cm Total DLP 208.27mGy.cm Total DLP DATA REPOSITORY: All CT scans at this facility are submitted to the National Radiology Data Registry (NRDR) Dose Index Registry (DIR) with the [employer] (ACR). RADIATION OPTIMIZATION: All CT scans at this facility use at least one of these dose optimization te chniques: automated exposure control; mA and/or kV adjustment per patient size (includes targeted exa ms where dose is matched to clinical indication); or iterative reconstruction.
== END 2024-07-31 02:09 ==
LOC: DI 01:49
PROVIDERS: PCP Family Medicine; Visit Provider Internal Medicine Pulmonary Disease
DX: K76.0 Fatty (change of) liver, not elsewhere classified (principal)
CPT/HCPCS: 71250

== ENCOUNTER 2024-10-04 04:20 | Outpatient (CLI) | payer MEDICAID, SELFPAY ==
[2024-10-04 12:30] LABS: HCT 41.8 % (40.0-50.0); HGB 13.8 g/dL (13.5-17.5); MCH 28.8 pg (27.0-33.0); MCV 87 fL (80-95); Platelet Count 205 10^3/uL (130-400); RBC 4.79 10^6/uL (4.36-5.78); RDW 12.4 % (11.8-14.1); WBC 7.87 10^3/uL (4.4-10.8)
[2024-10-04 12:31] LABS: ALT 90 U/L (16-63); AST 27 U/L (15-37); Alkaline Phosphatase 61 U/L (46-116); Anion Gap 10.1 mmol/L (3-11); BUN 21 mg/dL (7-18); Bilirubin, Total 0.36 mg/dL (0.2-1.0); CO2 25.9 mmol/L (21.0-32.0); CREATININE 0.9 mg/dL (0.70-1.30); Calcium 9.1 mg/dL (8.5-10.1); Calculated LDL 86 mg/dL (<100); Chloride 104 mmol/L (98-107); Cholesterol 171 mg/dL (<200); Estimated GFR 96.57 (mL/min/1.73m2); Glucose 124 mg/dL (74-106); HDL Cholesterol 53 mg/dL (40-60); Potassium 4.1 mmol/L (3.5-5.1); Sodium 140 mmol/L (136-145); TSH (W/Ref FT4) 1.12 uIU/mL (0.36-3.74); Total Protein 7.2 g/dL (6.4-8.2); Triglyceride 160 mg/dL (<150)
[2024-10-04 12:34] LABS: Hemoglobin A1C 7.1 % (<5.7)
[2024-10-04 12:39] LABS: D-Dimer 208 ng/mlFEU (<500)
== END 2024-10-04 04:21 | disposition home or self-care (01) ==
LOC: LOS 04:20
PROVIDERS: PCP Family Medicine; Referring Provider Nurse Practitioner Family; Visit Provider Nurse Practitioner Family
DX: R06.02 Shortness of breath (principal); R07.89 Other chest pain; I10 Essential (primary) hypertension; E78.5 Hyperlipidemia, unspecified; E11.9 Type 2 diabetes mellitus without complications; E66.9 Obesity, unspecified
CPT/HCPCS: 36415; 80053; 80061; 85027; 83036; 84443; 85379

== ENCOUNTER 2024-10-05 02:38 | Outpatient (CLI) | payer MEDICAID, SELFPAY ==
--- NOTE | 2024-10-05 06:24 | ETT_ITS ---
APPROVED REPORT Exam: Exercise Treadmill Patient Location: Out-Patient Room/Bed: Stress Nurse: Pavel Santillan RN Ordering Provider:ROMULO GODINEZ, Contact Number: [phone] BMI: 32.92 Baseline Rhythm: Sinus Rhythm. Comment: One rare PVC. Indications: Chest Pressure and Shortness of Breath. Medical History Medical History: HLD; HTN; Diabetes Mellitus Type 2; Former Smoker; Obesity; Shortness of Breath; Chaz ral Valve Prolapse; Syncope; Lower Back Pain; Fatty Liver Disease; GERD; Depression. Cardiac Medications: Omeprazole; Sertraline; Metformin; Losartan; Stiolto Respimat; Fluticasone Propi nisreen; Rosuvastatin. Allergies: Morphine. Cardiac Risk Factors: Family Hx; HLD; HTN; Diabetes Mellitus Type 2; Former Smoker; Obesity. Previous Cardiac Procedures: None. Pretest Chest Pain Characteristics: None. Exercise History: Physically active. Physical Disabilities: None. Lung Sounds: Clear bilaterally throughout, anterior and posterior. Heart Sounds: S1 and S2 auscultated. Stress Test Details Test: Exercise stress testing was performed using a Bogdan protocol. Rest Stress HR Resting HR Supine: 60 bpm Max Heart Rate (APMHR): 158 bpm Resting HR Standin bpm Target HR (85% APMHR): 134 bpm Max HR Achieved: 143 bpm % of APMHR: 91 Recovery HR: 71 bpm HR response to stress: Normal HR response to stress. BP Resting BP Supine: 132/90 mmHg Resting BP Standin/90 mmHg Max BP: 200/60 mmHg Recovery BP: 126/86 mmHg BP response to stress: Normal blood pressure response to stress. ECG Resting ECG: Sinus Rhyhtm. Ectopy: One rare PVC. Stress ECG: Sinus Tachycardia. ST Change: No significant ST segment changes noted. Arrhythmia: None. Recovery ECG: Sinus Rhythm. Recovery ST Change: No significant ST segment changes noted. Recovery Arrhythmia: One rare PVC. Clinical Reason for Termination: Target HR Achieved. Stress Symptoms: None. Exercise duration: 08 min03 sec Highest Stage Reached: Stage 3: 3.4 mph at 14% grade. Exercise capacity: 10.16 METs Angina Score: None Pearl Treadmill Score: 7.4 Rate Pressure Product: 28562 Stress ECG Conclusion 1. Resting electrocardiogram was normal 2. The patient exercised on the Bogdan protocol and completed workload of 10 METS 3. Normal heart rate and blood pressure response to exercise. Patient achieved 91% of maximal predic yoel heart rate for age 4. There was no electrocardiographic evidence of myocardial ischemia 5. There were no significant dysrhythmias Pearl Treadmill Score is 7.4 which is Low risk. Stress Test Summary STAGE Time (mins) Speed (mph) Grade (%) HR BP SpO2 SYMPTOMS METS Supine 60 132/90 99 Standing 69 124/90 99 1 3 1.7 10 99 146/74 99 4.5 2 6 2.5 12 125 160/70 96 7 3 9 3.4 14 143 94 10 1 min recovery 115 200/60 95 3 min recovery 81 160/76 95 6 min recovery 71 126/86 95 Pt. was conversing pleasantly with nursing staff upon leaving the Stress Lab. Pt. left ambulatory in no apparent distress.
== END 2024-10-05 02:58 ==
LOC: DI 02:38
PROVIDERS: PCP Family Medicine; Visit Provider Nurse Practitioner Family
DX: R07.89 Other chest pain (principal); R06.02 Shortness of breath
CPT/HCPCS: 93017

== ENCOUNTER 2024-10-16 01:34 | Outpatient (CLI) | payer MEDICAID, SELFPAY ==
--- NOTE | 2024-10-16 07:15 | DI.US_ITS ---
Exam(s) US CAROTID EXAM: US CAROTID CLINICAL HISTORY: family hx of carotid atherosclerosis,hyperlipidemia,z92.49,e78.5. TECHNIQUE: Ultrasound carotids performed using grayscale, color-flow, and spectral Doppler imaging. COMPARISON: US US EXTREMITY VENOUS BI from 02/02/2023 FINDINGS: CAROTID ARTERIES: Both common carotid arteries ascend without significant plaque non elevated velocities. There is aaliyah e mild plaque noted level of both carotid bulbs, without elevated velocities.. Mild plaque is seen i n the proximal internal carotid arteries but without elevated velocities evident on either side at th is level. There are also no elevated velocities in the mid neck level internal carotid arteries nor in the upper more distal internal carotid arteries on both sides of the upper neck. VERTEBRAL ARTERIES: Antegrade flow is demonstrated in both vertebral arteries. Measurements: R Bulb: 86.9cm/s PS / 21.6cm/s ED R CCA: 117.4cm/s PS / 25.9cm/s ED R ECA: 134.8cm/s PS / 10.7cm/s ED R ICA Prox: 113cm/s PS / 21.6cm/s ED R ICA Mid: 86.9cm/s PS / 23.7cm/s ED R ICA Distal: 71.7cm/s PS /23.7cm/s ED R Vert: 43.2cm/s PS / 14cm/s ED R SVR: 1 R DVR: 0.8 L Bulb: 78.3cm/s PS / 21.7cm/s ED L CCA: PS / 25.4cm/s ED L ECA: 91.1cm/s PS / 16.2cm/s ED L ICA Prox: 80.1cm/s PS / 29cm/s ED L ICA Mid: 92.9cm/s PS / 34.5cm/s ED L ICA Distal: 80.1cm/s PS / 30.8cm/s ED L Vert: 54.8cm/s PS / 19.7cm/s ED L SVR: 1 L DVR: 1.4 IMPRESSION: No evidence for hemodynamically significant carotid stenosis. There is some mild plaque evident at the level the bilateral carotid bulbs but no elevated velocities indicating amount of stenosis is less than 50 percent bilaterally. Visually estimated amount of smiley nosis is less than 20 percent bilaterally. Antegrade flow is demonstrated in both vertebral arteries in the neck. Criteria for Carotid Stenosis: Normal: ICA PSV <125 cm/s no plaque or intimal thickening is visible. <50% stenosis: ICA PSV <125 cm/s and plaque or intimal thickening is visible. 50-69% stenosis: ICA PSV is 125-250 cm/s and plaque is visible. >70% stenosis to near occlusion: ICA PSV >250 cm/s with visible plaque and luminal narrowing. DATA REPOSITORY:
--- NOTE | 2024-10-16 12:30 | DI.US_ITS ---
APPROVED REPORT EXAM: Comprehensive 2D, Doppler, and color-flow Echocardiogram Patient Location: Out-Patient Shoulder Joiner: Jazmine Garza RDCS (AE) Indications: Patient reports MVP Other Information Study Quality: Adequate Conclusion Normal left ventricular wall thickness and chamber size. Ejection fraction is 60%. Wall motion is n ormal Normal right ventricular size and function Both atria are normal in size Aortic valve is minimally sclerotic and trileaflet without stenosis or regurgitation Mitral valve is structurally normal. There is trace mitral regurgitation. No mitral valve prolapse is appreciated Estimated right ventricular systolic pressure is 29 mmHg Wall motion Left Ventricle The left ventricle is normal size. The left ventricular systolic function is normal. The left ventric ular ejection fraction is within the normal range. There is normal left ventricular wall thickness. T here is normal LV segmental wall motion. There is no ventricular septal defect visualized. LVEF is 59 %. Right Ventricle The right ventricle is normal size. The right ventricular systolic function is normal. Atria The left atrium size is normal. The right atrium size is normal. The interatrial septum is intact wit h no evidence for an atrial septal defect. Aortic Valve The aortic valve is minimally sclerotic Aortic valve is trileaflet. There is no aortic valvular steno sis. No aortic regurgitation is present. Mitral Valve The mitral valve is normal in structure. No evidence of mitral valve stenosis. Trace mitral regurgita tion. Tricuspid Valve The tricuspid valve is normal in structure. There is no tricuspid valve stenosis. Trace tricuspid reg urgitation. The RVSP is 27.9 mmHg. Pulmonic Valve The pulmonary valve is normal in structure. There is no pulmonic valvular stenosis. Trace pulmonic re gurgitation. Great Vessels The aortic root is normal in size. The ascending aorta is normal in size. Aortic arch is normal in ca liber. IVC is normal in size and collapses >50% with inspiration. Pericardium There is no pericardial effusion. 2D Dimensions IVSD d PLAX 0.92 cm M: 0.6-1.2 Ao Root d 3.13 cm M: 3.1 - 3.7 LVPW d PLAX 0.90 cm M: 0.6 - 1.2 Ao Asc Diam d 3.36 cm M: 2.6 - 3.4 LVID d PLAX 4.80 cm M: 4.2 - 5.8 LVDs 3.21 cm M: 2.5 - 4.0 LV EF Teichholz 60.9 % FS 32.57 % LV EDV (Teich) 105.5 mL LV ESV (Teich) 41.3 mL M-Mode TAPSE 2.15 cm (M/F) >1.7 Auto EF LV EDV A4C 117.8 mL LV EDV A2C 114.2 mL LV EDV BP 120.1 mL LV ESV A4C 48.9 mL LV ESV A2C 48.2 mL LV ESV BP 48.8 mL LVEF(%) A4C 58.5 % LVEF(%) A2C 57.8 % LVEF(%) BP 59.4 % LV SV A4C 68.9 ml LV SV A2C 66.0 ml LV SV BP 71.3 ml LV CO A4C 3.5 L/min LV CO A2C 3.2 L/min LV CO BP 3.4 L/min HR A4C 50.63 BPM HR A2C 48.72 BPM LV EDV Index (BP) LA Volume LA Length A4C 5.5 cm LA Length A2C 6.0 cm LA Area A4C s 16.48 cm2 LA Area A2C s 22.61 cm2 LA Vol A4C A-L 41.78 mL LA Vol A2C A-L 71.85 mL LA Vol Biplane A-L 57.3 mL LA Vol/BSA A4C A-L LA Vol/BSA A2C A-L LA Vol/BSA BP A-L 26.4 mL/m2 LA Vol A4C MOD 38.7 mL LA Vol A2C MOD 68.3 mL LA Vol BP MOD 53.7 mL RA Volume RA Area A4C 14.1 cm2 RA ESV A4C (A-L) 32.8mL RA Vol/BSA A4C A-L RA Length A4C 5.2 cm RA ESV A4C (MOD) 29.8mL LV Diastology MV E' medial 0.087 (>0.07 m/s) MV E Vmax 0.81 (0.4-1.3 m/s) MV E/E' MED 9.34 (<14) MV A Vmax 1.00 (0.4-1.3 m/s) MV E' lateral 0.102 (>0.1 m/s) E/A Ratio 0.8 MV E/E' LAT 7.95 (<14) MV E' Average 0.095 m/s MV E/E'(average) 8.59 Aortic Valve AoV Vmax 1.59 m/s LVOT Vmax 1.19 m/s AoV Peak Grad 10.1 mmHg LVOT Peak Grad 5.6 mmHg AoV Area (Vmax) 2.24 cm2 LVOT VTI 0.256 m AoV VTI 0.369 m LVOT Mean Grad 2.7 mmHg AoV Mean Winston. 1.09 m/s LVOT SV 76.77 mL AoV Mean Grad 5.4 mmHg LVOT Diam s 1.95 cm AoV Area (VTI) 2.08 cm2 AV Regurg Peak Gr. 10.12 mmHg Velocity Ratio 0.75 Mitral Valve MV DT 233 (160-240 msec) MV Vmax TIPS 0.89 m/s MV Mean Grad 1.2 (<2mmHg) MV VTI 0.351 m Pulmonary Valve PV Vmax 1.34 (0.5-1.5 m/s) RVOT Vmax 0.73 m/s PV Peak Grad 7.2 mmHg RVOT Peak Gr. 2.1 mmHg PV Mean Winston 0.78 m/s RVOT VTI 0.179 m PV Mean Grad 3.0 mmHg RVOT Mean Gr. 1.2 mmHg Tricuspid Valve RA Pressure 3.00 mmHg TR Vmax 2.50 m/s TV S' 0.14 m/s TR Peak Grad 24.9 mmHg RVSP (TR) 27.9 mmHg
== END 2024-10-16 01:54 ==
LOC: DI 01:34
PROVIDERS: PCP Family Medicine; Visit Provider Internal Medicine Cardiovascular Disease
DX: I35.8 Other nonrheumatic aortic valve disorders (principal); Z82.49 Family history of ischemic heart disease and other diseases of the circulatory system; I34.1 Nonrheumatic mitral (valve) prolapse
CPT/HCPCS: 93306; 93880

== ENCOUNTER 2025-04-16 06:56 | Day surgery (SDC) | payer MEDICAID, SELFPAY ==
--- NOTE | 2025-04-15 14:32 | PDOC.DSDIS_ITS ---
Date of service: 04/16/25 Discharge Plan Disposition Patient Disposition: Home Condition: Good Discharge Details Reason For Visit: screening colonoscopy Attending Provider: Gregg Wyatt Primary Care Provider: Nereida Manning Home Meds and New Rx's Prescriptions: Continued omeprazole 40 mg capsule,delayed release(DR/EC) 40 mg PO DAILY PRN (Reason: heartburn) Qty: 90 3RF fluticasone propionate 50 mcg/actuation spray,suspension 2 spray intranasal QDAY Patient Comments: INSTILL 2 SPRAYS IN EACH NOSTRIL DAILY SHAKE WELL BEFORE USING losartan-hydrochlorothiazide 100-12.5 mg tablet 1 tab PO DAILY Qty: 90 3RF metformin 500 mg tablet 500 mg PO BID Qty: 180 3RF (DME) blood-glucose meter [[employer] Verio Meter] 1 EACH misc 1 ea Miscellaneous DAILY Qty: 1 (DME) blood sugar diagnostic Strip See Rx Instructions .ROUTE .MEDSUPPLY Qty: 100 3RF Rx Instructions: test daily acetaminophen 325 mg capsule 325 mg PO ONCE PRN amoxicillin 500 mg capsule 2,000 mg PO .COMPLEX Rx Instructions: 2,000 mg orally one hour prior to dental visit; Stiolto Respimat 2.5-2.5 mcg/actuation mist 2 puff inhalation DAILY Qty: 4 3RF sertraline [Zoloft] 50 mg tablet 50 mg PO HS Qty: 90 3RF No Action rosuvastatin 20 mg tablet 20 mg PO HS Discharge Instructions Instructions: Colon polyps, Diverticulosis Additional Instructions: Angelito, it was good seeing you again today. I hope you feel well this afternoon. Things went very smoothly. Your prep was excellent, and I could see everything fine. I did find, and removed, 2 small polyps from your rectum today. To the naked eye, there are no worrisome features. I will send these off to the patho logist for them to review. Polyps, different varieties, we use the information from the polyp analysis to help guide the timing of future colonoscopies. These results will take about a week or so to get back, but once my office has that information, we will be in touch with recommendations. Incidentally, you also have some diverticulosis. I will attach some basic information here about diverticulosis as well as colorectal polyps. If you need anything, or have any questions, please do not hesitate to call. 1. If tolerated, consume a soft, low fiber diet for 1-2 days. 2. Do not drive, drink alcohol, operate machinery, make critical decisions, or do activities that require coordination or balance for 24 hours. 3. Because air was put into your colon during the procedure, expelling air from your rectum (passing gas or farting) is normal. 4. You may not have a bowel movement for 1-3 days because of the colonoscopy prep. This is normal. 5. Go directly to the emergency room if you notice any of the following: Develop chills (warm to touch), or if you have a thermometer and your temperature is above 101 Difficulty breathing or difficultly swallowing Persistent vomiting Severe abdominal pain, other than gas cramps Severe chest pain Black, tarry stools Any bleeding ? exceeding one tablespoon 6. Call your physician if the site where your intravenous was started becomes re d, swollen, painful, and warm to touch. 7. Your physician has reviewed your pre-procedure medications. Please continue to take those medications as previously ordered. You will be given specific information/education regarding any changes to your medications before leaving. Activity:: Activity as Tolerated Diet:: As Tolerated Discharge Orders Discharge Orders: Discharge Order (Routine); Ordered 04/15/25 Ordered By: Gregg Wyatt DS: Diagnosis Discharge Diagnosis (1) Encounter for screening colonoscopy: Status: Acute Asessment and Plan: Follow-up on polypectomy results
--- NOTE | 2025-04-15 14:34 | W.COLOREPORT ---
Date of service: 04/16/25 Time of Service: 08:29 Colonoscopy Report Date of procedure: 04/16/25 Pre-op diagnosis general: screening colonoscopy Post-op diagnosis procedure note: other (Rectal polyps, diverticulosis) Procedure: colonoscopy with polypectomy Surgeon: Gregg Wyatt Anesthesia Type: General:No Airway Estimated blood loss (mL): 5 Pathology: other (0.25 cm flat rectal polyps x 2 (single specimen)) Complications: None Disposition: same day Indications: Maurice is a 64 year old man who needs his next screening colon Prep: Miralax/Dulcolax Procedure Start Time: 08:10 Procedure End Time: :22 Retraction Time: 7 Findings: Sigmoid diverticulosis, 0.25 cm rectal polyps x 2 Procedure Description: After the induction of anesthesia, and with the patient in left lateral decubitus position, I began by performing an external anorectal exam.? Perineum and skin were normal, as was the anal verge.? There was no evidence of external hemorrhoids.? Next, I performed a digital rectal exam.? I did not appreciate any abnormal findings.? Next, I advanced a colonoscope into the rectal vault.? I performed retroflexion.? This appeared normal. In the midportion of the rectal vault were two 0.25 cm flat rectal polyps. These were removed with cold forceps, and sent as a single specimen. There was minimal bleeding from the polypectomy sites.? Using insufflation, I then advanced the colonoscope beyond the rectal folds and into the sigmoid colon before advancing towards the cecum.? The quality of the prep was excellent.? The scope was noted to be in the cecum by identification of the ileocecal valve and appendiceal orifice.? I then began withdrawing the colonoscope using repeated irrigation as necessary for full evaluation of the colonic mucosa. There is sigmoid diverticulosis. ?Once the scope was withdrawn to the level of the rectum, great care was taken to examine portions of the rectal folds.? Finally, the scope was withdrawn and the patient was brought to the same-day surgery recovery unit as the anesthetic wore off. ?The findings and instructions were shared with the patient prior to discharge. [place] Bowel Prep [place] Bowel Prep Right Colon: 3 Left Colon: 3 Transverse Colon: 3 Total Score: 9
[2025-04-16 07:05] VITALS: BP 125/89; PULSE 57; RESP 16; TEMP 36.1; O2SAT 95
--- NOTE | 2025-04-16 07:34 | ANES.PREOP_ITS ---
General Info Date of Service Date Performed: 04/16/25 Height: 5 ft 10 in Weight: 99 kg Body Mass Index (BMI): 31.3 Surgical Procedure: Operation Date: 04/16/25 08:20 Proposed Procedure Side Surgeon p Colonoscopy Gregg Wyatt MD Actual Procedure Side Surgeon p Colonoscopy Gregg Wyatt MD Pre-Op Diagnosis Post-Op Diagnosis hx of polypoid colonic mucosa Meds Allergies and Home Medications Allergies Allergy/AdvReac Type Severity Reaction Status Date / Time morphine AdvReac Mild nausea Verified 04/16/25 07:14 Home Medication ?Medication ?Instructions ?Recorded blood-glucose meter ([employer] ##1 11/03/16 Verio Meter) blood sugar diagnostic #100 ea 01/21/23 omeprazole 40 mg capsule,delayed 40 mg PO DAILY PRN he artburn #90 02/16/24 release caps metformin 500 mg tablet 500 mg PO BID #180 tabs 04/28 04/19 acetaminophen 325 mg capsule 325 mg PO ONCE PRN amoxicillin 500 mg capsule 2,000 mg PO .COMPLEX fluticasone propionate 50 2 spray intranasal QDAY 04/20 mcg/actuation nasal spray,suspension tiotropium 2.5 mcg-olodaterol 2.5 2 puff inhalation DA NADYA #4 grams 11/20/24 mcg/actuation mist for inhalation (Stiolto Respimat) losartan 100 1 tab PO DAILY #90 tabs 11/25 12/19 mg-hydrochlorothiazide 12.5 mg tablet sertraline 50 mg tablet (Zoloft) 50 mg PO HS #90 tabs 02/26/25 rosuvastatin 20 mg tablet 20 mg PO HS 04/16/25 Current Visit Medications: Current Medications Generic Name Dose Route Start Last Admin Trade Name Freq PRN Reason Stop Dose Admin Ringer's Solution 1,000 mls @ 80 mls/hr 04/16/25 06:00 IV 04/16/25 23:59 INFUSION [facility] IV Miscellaneous Supplies 1 each 04/16/25 06:00 Iv Access IV 04/16/25 23:59 DIRECTED [facility] Ondansetron HCl 4 mg 04/15/25 14:35 Ondansetron 4 Mg/2 Ml Vial IVP 05/15/25 14:34 Q4H PRN PRN Nausea / Vomiting Sodium Chloride 0 ml 04/16/25 06:00 Normal Saline Flush 10 Ml Syr IV 04/16/25 23:59 PRN PRN Sodium Chloride 0 ml 04/16/25 06:00 Normal Saline 10 Ml Vial IJ 04/16/25 23:59 DIRECTED PRN Sterile Water 0 ml 04/16/25 06:00 Water,Injection,Sterile 10 Ml Vial IJ 04/16/25 23:59 DIRECTED PRN PFSH Active Problems Active Problems: Problem Status Onset Code Encounter for screening colonoscopy Acute Z12.11 History of excessive cerumen Acute Z78.9 Conductive hearing loss, external ear Acute H90.2 Impacted cerumen, right ear Acute H61.21 Mitral valve prolapse Acute I34.1 Allergic rhinitis, unspecified Acute J30.9 Obesity (BMI 30.0-34.9) Acute E66.9 Facial flushing Acute R23.2 Headache Acute R51.9 Sinusitis Acute J32.9 Syncope Chronic R55 Shortness of breath Acute R06.02 Lung nodule Acute R91.1 Low back pain Acute M54.5 Diabetes mellitus Chronic E11.9 Actinic keratosis Acute ~06/2019 L57.0 Unilateral inguinal hernia Acute 08/26/95 K40.90 Rotator cuff tear arthropathy of right shoulder Acute 03/10/16 M75.101, M12.811 Polyp of colon Acute 11/06/13 K63.5 Hyperlipidemia with target LDL less than 100 Acute E78.5 Fatty liver disease, nonalcoholic Acute 10/10/14 K76.0 Essential hypertension Acute 07/18/13 I10 Gastro-esophageal reflux disease with esophagitis Acute K21.0 Depressive disorder Acute F32.9 Medical History Medical History Shingles Surgical History Surgical History Repair, Rotator Cuff (01/31/16) Colonoscopy - MAC (11/06/13) Tobacco Smoking/Tobacco Use Status: Former Tobacco Use Smokeless tobacco user: other Passive smoking exposure: No Second hand exposure: Yes Alcohol Alcohol Intake: current Alcohol intake frequency: a few times a week Alcohol type: beer and wine Substance Use Substance use: Never Substance use type: does not use Vital Signs and Lab Results Vital Signs Most Recent Vital Signs in EMR: Most Recent Vital Signs Temp Pulse Resp BP Pulse Ox 36.1 C L 57 L 16 125/89 95 04/16/25 07:05 04/16/25 07:05 04/16/25 07:05 04/16/25 07:05 04/16/25 07:05 Point of Care Results Point of Care Results: Finger Stick Blood Glucose 140 04/16/25 07:14 Imaging and Studies Imaging and Studies Study information below may be from another EMR and interpreted by another provider. Please see original notes in EMR for more complete details. EKG Summary: 09/07/23 Conclusion Sinus rhythm...normal P axis, V-rate 60- 99 Stress Test Summary: STRESS TEST PATIENT NAME: Maurice Junior UNIT #: [id number] ORDERING PROVIDER: Nereida Godinez NP PRIMARY CARE PROVIDER: KULWANT HINES MD DATE/TIME OF SERVICE: 10/05/24 ADMITTING PROVIDER: JADEN HATFIELD MD : 1960 APPROVED REPORT Exam: Exercise Treadmill Patient Location: Out-Patient Room/Bed: Stress Nurse: Pavel Santillan RN Ordering Provider:NEREIDA GODINEZ, Contact Number: [phone] BMI: 32.92 Baseline Rhythm: Sinus Rhythm. Comment: One rare PVC. Indications: Chest Pressure and Shortness of Breath. Medical History Medical History: HLD; HTN; Diabetes Mellitus Type 2; Former Smoker; Obesity; Shortness of Breath; Mitral Valve Prolapse; Syncope; Lower Back Pain; Fatty Liver Disease; GERD; Depression. Cardiac Medications: Omeprazole; Sertraline; Metformin; Losartan; Stiolto Respimat; Fluticasone Propionate; Rosuvastatin. Allergies: Morphine. Cardiac Risk Factors: Family Hx; HLD; HTN; Diabetes Mellitus Type 2; Former Smoker; Obesity. Previous Cardiac Procedures: None. Pretest Chest Pain Characteristics: None. Exercise History: Physically active. Physical Disabilities: None. Lung Sounds: Clear bilaterally throughout, anterior and posterior. Heart Sounds: S1 and S2 auscultated. Stress Test Details Test: Exercise stress testing was performed using a Bogdan protocol. Rest Stress HR Resting HR Supine: 60 bpmMax Heart Rate (APMHR): 158 bpm Resting HR Standin bpmTarget HR (85% APMHR): 134 bpm Max HR Achieved: 143 bpm % of APMHR: 91 Recovery HR: 71 bpm HR response to stress: Normal HR response to stress. BP Resting BP Supine: 132/90 mmHg Resting BP Standin/90 mmHg Max BP: 200/60 mmHg Recovery BP: 126/86 mmHg BP response to stress: Normal blood pressure response to stress. ECG Resting ECG: Sinus Rhyhtm. Ectopy: One rare PVC. Stress ECG: Sinus Tachycardia. ST Change: No significant ST segment changes noted. Arrhythmia: None. Recovery ECG: Sinus Rhythm. Recovery ST Change: No significant ST segment changes noted. Recovery Arrhythmia: One rare PVC. Clinical Reason for Termination: Target HR Achieved. Stress Symptoms: None. Exercise duration: 08 min03 sec Highest Stage Reached: Stage 3: 3.4 mph at 14% grade. Exercise capacity: 10.16 METs Angina Score: None Pearl Treadmill Score: 7.4 Rate Pressure Product: [id number] Stress ECG Conclusion 1. Resting electrocardiogram was normal 2. The patient exercised on the Bogdan protocol and completed workload of 10 METS 3. Normal heart rate and blood pressure response to exercise. Patient achieved 91% of maximal predicted heart rate for age 4. There was no electrocardiographic evidence of myocardial ischemia 5. There were no significant dysrhythmias Pearl Treadmill Score is 7.4 which is Low risk. Stress Test Summary STAGE Echocardiogram Summary: 10/16/24 Conclusion Normal left ventricular wall thickness and chamber size. Ejection fraction is 60%. Wall motion is normal Normal right ventricular size and function Both atria are normal in size Aortic valve is minimally sclerotic and trileaflet without stenosis or regurgitation Mitral valve is structurally normal. There is trace mitral regurgitation. No mitral valve prolapse is appreciated Estimated right ventricular systolic pressure is 29 mmHg Carotid Artery Summary:: 10/16/24 No hemodynamically significant carotid stenosis. Pulmonary Function Summary: 04/03/24 Normal Anesthesia Assessment and Plan Anesthesia History Personal History: No History of Anesthesia Complications Family History: No Family History of Anesthesia Complications Exercise Tolerance Exercise Tolerance: Metabolic Equivalents>4 Pertinent Negatives Pertinent Negatives: No Symptoms of GERD and No History of CVA/TIA Cardiac & Pulmonary Exam Cardiac Exam: Normal S1/S2 Heart Sounds Pulmonary Exam: Clear Bilateral Breath Sounds Implantable Cardiac Device Does patient have a Pacemaker or an ICD?: No Airway Exam Known Difficult Airway: No Mallampati Class: 3 Mouth Opening: Normal (> 3cm) Thyromental Distance: Greater than 3 cm Neck Range of Motion: Full ROM Neck Circumference: Normal Teeth Condition: Normal Dentition ASA Classification ASA Score: ASA 2 Emergency Case?: No NPO Status NPO Status: NPO Clears >2 hours, Solids >8 hours Anesthesia Plan Resuscitation Status: Full Code Anesthesia Technique: General Anesthesia Airway Planned: Natural Airway Monitors Used: Standard Monitors
[2025-04-16] MEDS: Lactated Ringers 1,000 ML 80 ML IV (07:35)
[2025-04-16 07:53] VITALS: BMI 31.3
--- NOTE | 2025-04-16 08:11 | BOWEL_PTH ---
PATIENT: Maurice Junior LOC: [facility] U#:[id number] AGE/SX: 64/M ROOM: RE04/16/[address]: Gregg Wyatt MD : 1960 BED: DIS: 04/16/2025 SPEC #: [id number] RECD: 04/16/25 12:46 STATUS: JEFF REQ #: [id number] MOIRA: 04/16/25 08:[address]: Gregg Wyatt DEPT: Surgical Specimen RECD BY: Christina Christianson ENTERED: 04/16/25 12:48 SP TYPE: Bowel OTHR DR: Nereida Manning, ENMA Tissues: 1 - BIOPSY BOWEL Procedures: GROSS AND MICRO LEVEL 4 Comments: [id number]
[2025-04-16 08:29] VITALS: BP 114/66; PULSE 55; RESP 18; O2SAT 96
--- NOTE | 2025-04-16 08:40 | W.ANESPOSTOP ---
Postoperative Evaluation Date, Time and Location Date Performed: 04/16/25 Time Performed: 08:40 Patient Location: Day Surgery Unit Vital Signs Most Recent Imported Vital Signs: Most Recent Vital Signs Temp Pulse Resp BP Pulse Ox 36.1 C L 55 L 18 114/66 96 04/16/25 07:05 04/16/25 08:29 04/16/25 08:29 04/16/25 08:29 04/16/25 08:29 Pain Score Most Recent Pain Score: Most Recent Pain Score Pain Level 0 04/16/25 07:05 Assessment Mental Status: Awake (Alert & Oriented to Patient Baseline) Airway and Respiratory Function: Patent airway with normal (patient baseline) respiratory exam Cardiovascular Function: Hemodynamically Stable Hydration Status: Adequately Hydrated Nausea & Vomiting: No Nausea or Vomiting Pain: Pt. Denies Any Pain Peripheral Nerve Block: Patient did not receive a nerve block
[2025-04-16 08:59] VITALS: BP 114/17; PULSE 54; RESP 20; O2SAT 97
== END 2025-04-16 09:11 | disposition home or self-care (01) ==
LOC: SUR 06:57
PROVIDERS: PCP Nurse Practitioner Family; Visit Provider Surgery
PROC: 0DJD8ZZ Inspection of Lower Intestinal Tract, Via Natural or Artificial Opening Endoscopic (ICD-10-PCS; CPT 45378; principal; 2025-04-16 08:15)
DX: Z12.11 Encounter for screening for malignant neoplasm of colon (principal); K63.5 Polyp of colon; K57.30 Diverticulosis of large intestine without perforation or abscess without bleeding
CPT/HCPCS: 45380; 88305; J2003; J2704